=== PATIENT | female | born 1995 | race Hispanic/Latino ===

== ENCOUNTER 2019-01-08 17:02 | Emergency (ER) | payer OTHER ==
[~2019-01-08 17:02] MED LIST: PREN-196 PO; PREN1TAB26 PO
== END 2019-01-08 18:04 | disposition home or self-care (01) ==
LOC: EDH 17:02
DX: S90.861A Insect bite (nonvenomous), right foot, initial encounter (principal); L08.9 Local infection of the skin and subcutaneous tissue, unspecified; W57.XXXA Bitten or stung by nonvenomous insect and other nonvenomous arthropods, initial encounter; Y93.89 Activity, other specified; Y92.89 Other specified places as the place of occurrence of the external cause; Y99.8 Other external cause status
CPT/HCPCS: 73630

== ENCOUNTER 2019-03-11 15:06 | Emergency (ER) | payer OTHER | END 2019-03-11 17:45 | disposition home or self-care (01) | LOC: EDH 15:06 | DX: L01.00 Impetigo, unspecified (principal) ==

== ENCOUNTER 2019-05-03 15:56 | Emergency (ER) | payer MEDICAID ==
[2019-05-03 16:20] LABS: APPEARANCE,URINE Clear (CLEAR); BILIRUBIN,URINE Negative (NEGATIVE); COLOR,URINE Yellow (YELLOW); GLUCOSE, URINE (UA) Negative (NEGATIVE); KETONES,URINE Negative (NEGATIVE); LEUKOCYTE ESTERASE ,URINE Trace (NEGATIVE); NITRATE,URINE Negative (NEGATIVE); OCCULT BLOOD,URINE Negative (NEGATIVE); PH,URINE 5.5 (5.0-8.0); PROTEIN,URINE Negative (NEGATIVE)
[2019-05-03 16:22] LABS: HCG,QUAL RESULT POSITIVE (NEGATIVE)
[2019-05-03 16:48] LABS: BACTERIA,URINE Few /HPF (None Seen); MUCUS,URINE Few LPF (None Seen); RBC,URINE 0-1 /HPF (0-1); SQUAMOUS EPITHELIAL CELL,UR Moderate /HPF (0-2)
[2019-05-03 17:03] LABS: BASOPHILS % (AUTO) 0.1 % (0.0-5.0); EOSINOPHILS % (AUTO) 0.7 % (0.0-8.0); HEMATOCRIT 35.4 % (36-48); LYMPHOCYTES % (AUTO) 23.6 % (21.0-51.0); MEAN CORPUSCULAR HEMOGLOBIN 30.4 pg (27.0-33.0); MEAN CORPUSCULAR HGB CONC 33.9 g/dL (32.0-36.0); MEAN CORPUSCULAR VOLUME 89.7 fL (79-99); MONOCYTES % (AUTO) 6.1 % (3.0-13.0); NEUTROPHILS % (AUTO) 69.5 % (40.0-77.0); NUCLEATED RED BLOOD CELLS 0.1 % (0.0-0.19); PLATELET COUNT (AUTO) 194 K/uL (130-400); RED BLOOD CELL COUNT(AUTO) 3.95 MIL/uL (4.00-5.50); RED CELL DISTRIBUTION WIDTH 13.1 % (11.0-15.5); WHITE BLOOD COUNT (AUTO) 9.1 K/uL (4.8-10.8)
== END 2019-05-03 19:16 | disposition home or self-care (01) ==
LOC: EDH 15:56
DX: O26.891 Other specified pregnancy related conditions, first trimester (principal); R10.9 Unspecified abdominal pain; Z3A.01 Less than 8 weeks gestation of pregnancy
CPT/HCPCS: 36415; 76817; 81001; 81025; 84702; 85025; 86900; 86901

== ENCOUNTER 2019-05-25 17:03 | Emergency (ER) | payer MEDICAID ==
[2019-05-25] MEDS ORDERED: SODIUM CHLORIDE 0.9% 1000ML 1,000 ML IV ONE (17:36)
[2019-05-25] MEDS ORDERED: DiphenhydrAMINE HCL 50 MG/ML VIAL ONE (17:48)
[2019-05-25 18:21] LABS: BASOPHILS % (AUTO) 0.1 % (0.0-5.0); EOSINOPHILS % (AUTO) 0.2 % (0.0-8.0); HEMATOCRIT 37.1 % (36-48); LYMPHOCYTES % (AUTO) 14.5 % (21.0-51.0); MEAN CORPUSCULAR HGB CONC 33.7 g/dL (32.0-36.0); MEAN CORPUSCULAR VOLUME 89.2 fL (79-99); MONOCYTES % (AUTO) 4.5 % (3.0-13.0); NEUTROPHILS % (AUTO) 80.4 % (40.0-77.0); PLATELET COUNT (AUTO) 189 K/uL (130-400); RED BLOOD CELL COUNT(AUTO) 4.16 MIL/uL (4.00-5.50); RED CELL DISTRIBUTION WIDTH 13.2 % (11.0-15.5)
[2019-05-25 18:35] LABS: CREATININE 0.5 mg/dL (0.5-1.5); POTASSIUM 3.3 mmol/L (3.5-5.1)
[2019-05-25] MEDS ORDERED: POTASSIUM CHLORIDE 20 MEQ ERTAB PO ONE (19:01)
[2019-05-25 19:13] LABS: APPEARANCE,URINE Clear (CLEAR); BILIRUBIN,URINE Negative (NEGATIVE); COLOR,URINE Yellow (YELLOW); GLUCOSE, URINE (UA) Negative (NEGATIVE); KETONES,URINE 15 mg/dL (NEGATIVE); LEUKOCYTE ESTERASE ,URINE Negative (NEGATIVE); NITRATE,URINE Negative (NEGATIVE); OCCULT BLOOD,URINE Negative (NEGATIVE); PH,URINE 5.5 (5.0-8.0); PROTEIN,URINE Negative (NEGATIVE); UROBILINOGEN,URINE 0.2 mg/dL (0.2-1.0)
== END 2019-05-25 19:53 | disposition home or self-care (01) ==
LOC: EDH 17:03
DX: O21.1 Hyperemesis gravidarum with metabolic disturbance (principal); R55 Syncope and collapse; Z3A.08 8 weeks gestation of pregnancy
CPT/HCPCS: 36415; 80048; 81003; 85025; 93005; 96361; 96374; 96375; 99285; J1200; J7030

== ENCOUNTER 2020-08-02 21:37 | Emergency (ER) | payer MEDICAID | END 2020-08-02 23:44 | disposition home or self-care (01) | LOC: EDH 21:37 | DX: F41.9 Anxiety disorder, unspecified (principal); R06.4 Hyperventilation | CPT/HCPCS: 99281 ==

== ENCOUNTER 2020-08-26 11:58 | Emergency (ER) | payer MEDICAID ==
[2020-08-26] MEDS ORDERED: ACETAMINOPHEN EXTRA STRENGTH 500 MG TABLET ONE (12:14)
[2020-08-26] MEDS ORDERED: SODIUM CHLORIDE 0.9% 1000ML 1,000 ML IV ONE (12:15)
[2020-08-26 13:04] LABS: BASOPHILS % (AUTO) 0.1 % (0.0-5.0); EOSINOPHILS % (AUTO) 0.1 % (0.0-8.0); HEMATOCRIT 38.3 % (36-48); LYMPHOCYTES % (AUTO) 9.4 % (21.0-51.0); MEAN CORPUSCULAR HGB CONC 33.2 g/dL (32.0-36.0); MEAN CORPUSCULAR VOLUME 87.4 fL (79-99); MONOCYTES % (AUTO) 6.2 % (3.0-13.0); NEUTROPHILS % (AUTO) 83.9 % (40.0-77.0); PLATELET COUNT (AUTO) 159 K/uL (130-400); RED BLOOD CELL COUNT(AUTO) 4.38 MIL/uL (4.00-5.50); RED CELL DISTRIBUTION WIDTH 13.7 % (11.0-15.5); WHITE BLOOD COUNT (AUTO) 9.1 K/uL (4.8-10.8)
[2020-08-26 13:08] LABS: APPEARANCE,URINE CLOUDY (CLEAR); BILIRUBIN,URINE SMALL (NEGATIVE); COLOR,URINE ORANGE (YELLOW); GLUCOSE, URINE (UA) 100 mg/dL (NEGATIVE); KETONES,URINE NEGATIVE (NEGATIVE); LEUKOCYTE ESTERASE ,URINE NEGATIVE (NEGATIVE); NITRATE,URINE POSITIVE (NEGATIVE); OCCULT BLOOD,URINE LARGE (NEGATIVE); PROTEIN,URINE 100 mg/dL (NEGATIVE)
[2020-08-26 13:12] LABS: CREATININE 0.7 mg/dL (0.5-1.5); POTASSIUM 3.3 mmol/L (3.5-5.1)
[2020-08-26 13:14] LABS: RAPID GROUP A STREP NEGATIVE (NEGATIVE)
[2020-08-26 13:15] LABS: HCG,QUAL RESULT NEGATIVE (NEGATIVE)
[2020-08-26 13:17] LABS: ALBUMIN 3.6 g/dL (3.5-5.0); BILIRUBIN,TOTAL 0.4 mg/dL (0.2-1.0); TOTAL PROTEIN, SERUM 7.6 g/dL (6.0-8.3)
[2020-08-26 13:25] LABS: BACTERIA,URINE Few /HPF (None Seen); RBC,URINE TNTC /HPF (0-1); WBC,URINE 0-1 /HPF (0-1)
[2020-08-26] MEDS ORDERED: CEFTRIAXONE SODIUM 1 GM ONE (13:30)
== END 2020-08-26 14:09 | disposition home or self-care (01) ==
LOC: EDH 11:58
DX: N30.90 Cystitis, unspecified without hematuria (principal); E86.0 Dehydration
CPT/HCPCS: 36415; 71045; 80053; 81001; 81025; 85025; 87040 ×2; 87088; 87804 ×2; 87880; 96361; 96365; 99284; J0696; J7030

== ENCOUNTER 2020-12-27 22:18 | Emergency (ER) | payer MEDICAID ==
[~2020-12-27] VITALS: Ht 149.9 cm; Wt 57.2 kg
[2020-12-27 23:01] VITALS: BP 118/72
== END 2020-12-28 00:14 | disposition home or self-care (01) ==
LOC: EDH 22:18
DX: U07.1 COVID-19 (principal); Z79.899 Other long term (current) drug therapy
CPT/HCPCS: 87635; 99283; C9803

== ENCOUNTER 2021-01-09 12:36 | Emergency (ER) | payer MEDICAID ==
[~2021-01-09] VITALS: Ht 149.9 cm; Wt 52.2 kg
[2021-01-09 12:37] VITALS: BP 120/77
[2021-01-09] MEDS ORDERED: MECLIZINE HCL 25 MG TABLET PO ONE (13:00)
[2021-01-09 13:38] LABS: APPEARANCE,URINE Clear (CLEAR); BILIRUBIN,URINE Negative (NEGATIVE); COLOR,URINE Yellow (YELLOW); GLUCOSE, URINE (UA) Negative (NEGATIVE); HCG,QUAL RESULT NEGATIVE (NEGATIVE); KETONES,URINE Negative (NEGATIVE); LEUKOCYTE ESTERASE ,URINE Negative (NEGATIVE); NITRATE,URINE Negative (NEGATIVE); OCCULT BLOOD,URINE Negative (NEGATIVE); PH,URINE 7.5 (5.0-8.0); PROTEIN,URINE Negative (NEGATIVE); UROBILINOGEN,URINE 0.2 mg/dL (0.2-1.0)
[2021-01-09 13:46] VITALS: BP_SYST 114; BP_SYST 123; BP_SYST 126; BP_DIAS 73; BP_DIAS 75; BP_DIAS 79
[2021-01-09 13:53] LABS: BASOPHILS % (AUTO) 0.1 % (0.0-5.0); EOSINOPHILS % (AUTO) 0.2 % (0.0-8.0); HEMATOCRIT 41.2 % (36-48); LYMPHOCYTES % (AUTO) 15.6 % (21.0-51.0); MEAN CORPUSCULAR HEMOGLOBIN 29.2 pg (27.0-33.0); MEAN CORPUSCULAR HGB CONC 33.5 g/dL (32.0-36.0); MEAN CORPUSCULAR VOLUME 87.1 fL (79-99); MONOCYTES % (AUTO) 6.1 % (3.0-13.0); NEUTROPHILS % (AUTO) 77.6 % (40.0-77.0); PLATELET COUNT (AUTO) 259 K/uL (130-400); RED BLOOD CELL COUNT(AUTO) 4.73 MIL/uL (4.00-5.50); RED CELL DISTRIBUTION WIDTH 13.6 % (11.0-15.5); WHITE BLOOD COUNT (AUTO) 8.3 K/uL (4.8-10.8)
[2021-01-09] MEDS ORDERED: 0.9%NACL 1000ML 1,000 ML IV ONE (14:00)
[2021-01-09 14:01] LABS: CREATININE 0.6 mg/dL (0.5-1.5); POTASSIUM 4.1 mmol/L (3.5-5.1)
[2021-01-09] MEDS ORDERED: MECLIZINE HCL 25 MG TABLET ONE (14:03)
[2021-01-09 14:06] LABS: ALBUMIN 4.2 g/dL (3.5-5.0); BILIRUBIN,TOTAL 0.5 mg/dL (0.2-1.0); TOTAL PROTEIN, SERUM 8.5 g/dL (6.0-8.3)
[2021-01-09] MEDS ORDERED: MECL-226 PO (14:36)
== END 2021-01-09 14:52 | disposition home or self-care (01) ==
LOC: EDH 12:36
DX: I95.1 Orthostatic hypotension (principal); B34.9 Viral infection, unspecified
CPT/HCPCS: 36415; 71045; 80053; 81003; 81025; 84484; 85025; 93005

== ENCOUNTER 2021-06-29 21:03 | Emergency (ER) | payer MEDICAID ==
[~2021-06-29] VITALS: Ht 152.4 cm; Wt 59.0 kg
[~2021-06-29 21:03] MED LIST changes: +MECL-226 PO
[2021-06-30] MEDS ORDERED: BENZ-39 PO (05:08)
[2021-06-30 05:23] VITALS: BP 122/72
== END 2021-06-30 05:23 | disposition home or self-care (01) ==
LOC: EDH 21:03
DX: U07.1 COVID-19 (principal); F41.9 Anxiety disorder, unspecified; Z79.899 Other long term (current) drug therapy
CPT/HCPCS: 87635; 99283; C9803

== ENCOUNTER 2021-11-12 22:19 | Emergency (ER) | payer MEDICAID ==
[~2021-11-12] VITALS: Ht 149.9 cm; Wt 61.2 kg
[~2021-11-12 22:19] MED LIST changes: +BENZ-39 PO
[2021-11-12 22:37] LABS: BASOPHILS % (AUTO) 0.3 % (0.0-5.0); EOSINOPHILS % (AUTO) 2.9 % (0.0-8.0); LYMPHOCYTES % (AUTO) 32.2 % (21.0-51.0); MEAN CORPUSCULAR HEMOGLOBIN 29.7 pg (27.0-33.0); MEAN CORPUSCULAR HGB CONC 33.1 g/dL (32.0-36.0); MEAN CORPUSCULAR VOLUME 89.9 fL (79-99); MONOCYTES % (AUTO) 8.1 % (3.0-13.0); NEUTROPHILS % (AUTO) 56.4 % (40.0-77.0); PLATELET COUNT (AUTO) 207 K/uL (130-400); RED BLOOD CELL COUNT(AUTO) 4.34 MIL/uL (4.00-5.50); WHITE BLOOD COUNT (AUTO) 7.5 K/uL (4.8-10.8)
[2021-11-12 22:46] LABS: CREATININE 0.8 mg/dL (0.5-1.5)
[2021-11-12 22:50] LABS: ALBUMIN 3.9 g/dL (3.5-5.0); BILIRUBIN,TOTAL 0.3 mg/dL (0.2-1.0); TOTAL PROTEIN, SERUM 7.8 g/dL (6.0-8.3)
[2021-11-12 22:54] LABS: APPEARANCE,URINE Clear (CLEAR); BILIRUBIN,URINE Negative (NEGATIVE); COLOR,URINE Yellow (YELLOW); GLUCOSE, URINE (UA) Negative (NEGATIVE); KETONES,URINE Negative (NEGATIVE); LEUKOCYTE ESTERASE ,URINE Trace (NEGATIVE); NITRATE,URINE Negative (NEGATIVE); OCCULT BLOOD,URINE Negative (NEGATIVE); PH,URINE 6.5 (5.0-8.0); PROTEIN,URINE Negative (NEGATIVE)
[2021-11-12 22:57] LABS: HCG,QUAL RESULT NEGATIVE (NEGATIVE)
[2021-11-12 23:04] LABS: BACTERIA,URINE Few /HPF (None Seen); RBC,URINE None Seen /HPF (0-1); SQUAMOUS EPITHELIAL CELL,UR Few /HPF (0-2); WBC,URINE None Seen /HPF (0-1)
[2021-11-13] MEDS ORDERED: MORPHINE 4 MG SYG ONE (00:17)
[2021-11-13] MEDS ORDERED: ONDANSETRON 4MG INJ ONE (00:17)
[2021-11-13 00:29] VITALS: BP 100/64
[2021-11-13] MEDS ORDERED: MORPHINE 4 MG SYG IVP ONE (00:30)
[2021-11-13] MEDS ORDERED: ONDANSETRON 4MG INJ IVP ONE (00:30)
== END 2021-11-13 00:46 | disposition home or self-care (01) ==
LOC: EDH 22:19
DX: K43.9 Ventral hernia without obstruction or gangrene (principal)
CPT/HCPCS: 36415; 74176; 80053; 81001; 81025; 83690; 85025; 99284; J2270; J2405

== ENCOUNTER 2021-12-07 20:37 | Emergency (ER) | payer MEDICAID ==
[~2021-12-07] VITALS: Ht 149.9 cm; Wt 61.2 kg
[2021-12-07 20:44] VITALS: BP 112/73
[2021-12-07] MEDS ORDERED: D-ME1POW16 PO (21:34)
== END 2021-12-07 21:42 | disposition home or self-care (01) ==
LOC: EDH 20:37
DX: J06.9 Acute upper respiratory infection, unspecified (principal); Z20.822 Contact with and (suspected) exposure to COVID-19
CPT/HCPCS: 87635; C9803

== ENCOUNTER 2022-02-06 15:52 | Emergency (ER) | payer MEDICAID ==
[~2022-02-06] VITALS: Ht 149.9 cm; Wt 61.2 kg
[~2022-02-06 15:52] MED LIST changes: +D-ME1POW16 PO
[2022-02-06] MEDS ORDERED: IBUPROFEN 600 MG TABLET PO ONE (16:30)
[2022-02-06] MEDS ORDERED: SULF1TAB42 PO (16:46)
[2022-02-06] MEDS ORDERED: PHEN-776 PO (16:46)
[2022-02-06] MEDS ORDERED: IBUP-2070 PO (16:46)
[2022-02-06 16:49] LABS: APPEARANCE,URINE TURBID (CLEAR); BILIRUBIN,URINE NEGATIVE (NEGATIVE); COLOR,URINE YELLOW (YELLOW); GLUCOSE, URINE (UA) NEGATIVE (NEGATIVE); KETONES,URINE 15 mg/dL (NEGATIVE); LEUKOCYTE ESTERASE ,URINE NEGATIVE (NEGATIVE); NITRATE,URINE NEGATIVE (NEGATIVE); OCCULT BLOOD,URINE SMALL (NEGATIVE); PROTEIN,URINE NEGATIVE (NEGATIVE)
[2022-02-06 16:51] LABS: HCG,QUALITATIVE URINE NEGATIVE (NEGATIVE)
[2022-02-06 16:56] LABS: AMORPHOUS SEDIMENT,UR Many /LPF (None Seen); BACTERIA,URINE Rare /HPF (None Seen); MUCUS,URINE Few LPF (None Seen); SQUAMOUS EPITHELIAL CELL,UR Few /HPF (0-2); WBC,URINE 0-1 /HPF (0-1)
[2022-02-06] MEDS ORDERED: CEFTRIAXONE 1G VIAL IM ONE (17:00)
[2022-02-06] MEDS ORDERED: PHENAZOPYRIDINE HCL 200 MG TABLET PO ONE (17:00)
[2022-02-06 18:02] VITALS: BP 118/78
== END 2022-02-06 18:03 | disposition home or self-care (01) ==
LOC: EDH 15:52
DX: N39.0 Urinary tract infection, site not specified (principal); Z79.1 Long term (current) use of non-steroidal anti-inflammatories (NSAID)
CPT/HCPCS: 99283; 81001; 81025; 96372; J0696

== ENCOUNTER 2022-02-12 13:06 | Emergency (ER) | payer MEDICAID ==
[~2022-02-12] VITALS: Ht 149.9 cm; Wt 61.2 kg
[~2022-02-12 13:06] MED LIST changes: +IBUP-2070 PO; +PHEN-776 PO; +SULF1TAB42 PO
[2022-02-12 15:06] LABS: APPEARANCE,URINE CLOUDY (CLEAR); BILIRUBIN,URINE NEGATIVE (NEGATIVE); COLOR,URINE YELLOW (YELLOW); GLUCOSE, URINE (UA) NEGATIVE (NEGATIVE); KETONES,URINE NEGATIVE (NEGATIVE); LEUKOCYTE ESTERASE ,URINE TRACE (NEGATIVE); NITRATE,URINE NEGATIVE (NEGATIVE); OCCULT BLOOD,URINE LARGE (NEGATIVE); PROTEIN,URINE 30 mg/dL (NEGATIVE); UROBILINOGEN,URINE 0.2 mg/dL (0.2-1.0)
[2022-02-12 15:10] LABS: HCG,QUALITATIVE URINE NEGATIVE (NEGATIVE)
[2022-02-12 15:16] LABS: BACTERIA,URINE Rare /HPF (None Seen); RBC,URINE TNTC /HPF (0-1); SQUAMOUS EPITHELIAL CELL,UR Few /HPF (0-2); WBC,URINE 0-1 /HPF (0-1)
[2022-02-12 17:22] VITALS: BP 146/90
== END 2022-02-12 17:34 | disposition home or self-care (01) ==
LOC: EDH 13:06
DX: R10.9 Unspecified abdominal pain (principal); Z20.822 Contact with and (suspected) exposure to COVID-19; Z79.1 Long term (current) use of non-steroidal anti-inflammatories (NSAID)
CPT/HCPCS: 99283; 87635; 87804 ×2; 81001; 81025; C9803

== ENCOUNTER 2022-04-18 17:47 | Emergency (ER) | payer MEDICAID ==
[~2022-04-18] VITALS: Ht 149.9 cm; Wt 59.0 kg
[2022-04-18 18:38] LABS: BASOPHILS % (AUTO) 0.3 % (0.0-5.0); EOSINOPHILS % (AUTO) 1.7 % (0.0-8.0); HEMATOCRIT 36.8 % (36-48); MEAN CORPUSCULAR HEMOGLOBIN 29.6 pg (27.0-33.0); MEAN CORPUSCULAR HGB CONC 33.2 g/dL (32.0-36.0); MEAN CORPUSCULAR VOLUME 89.3 fL (79-99); MONOCYTES % (AUTO) 6.1 % (3.0-13.0); NEUTROPHILS % (AUTO) 65.6 % (40.0-77.0); PLATELET COUNT (AUTO) 205 K/uL (130-400); RED BLOOD CELL COUNT(AUTO) 4.12 MIL/uL (4.00-5.50); RED CELL DISTRIBUTION WIDTH 13.1 % (11.0-15.5); WHITE BLOOD COUNT (AUTO) 6.5 K/uL (4.8-10.8)
[2022-04-18 18:41] LABS: APPEARANCE,URINE CLEAR (CLEAR); BILIRUBIN,URINE NEGATIVE (NEGATIVE); COLOR,URINE YELLOW (YELLOW); GLUCOSE, URINE (UA) NEGATIVE (NEGATIVE); KETONES,URINE 40 mg/dL (NEGATIVE); LEUKOCYTE ESTERASE ,URINE NEGATIVE Leu/uL (NEGATIVE); NITRATE,URINE NEGATIVE (NEGATIVE); OCCULT BLOOD,URINE NEGATIVE (NEGATIVE); PH,URINE 6.5 (5.0-8.0); PROTEIN,URINE 20 mg/dL (NEGATIVE); UROBILINOGEN,URINE 3 mg/dL (0.2-1.0)
[2022-04-18 18:47] LABS: CREATININE 0.8 mg/dL (0.5-1.5); HCG,QUALITATIVE URINE NEGATIVE (NEGATIVE); POTASSIUM 3.4 mmol/L (3.5-5.1)
[2022-04-18 18:49] LABS: AMPHET/METH SCREEN,URINE NEGATIVE (NEGATIVE); BARBITURATE SCREEN, URINE NEGATIVE (NEGATIVE); BENZODIAZEPINES SCREEN,URINE NEGATIVE (NEGATIVE); CANNABINOID SCREEN,URINE POSITIVE (NEGATIVE); COCAINE SCREEN,URINE NEGATIVE (NEGATIVE); OPIATE SCREEN,URINE NEGATIVE (NEGATIVE); PHENCYCLIDINE SCREEN,URINE NEGATIVE (NEGATIVE)
[2022-04-18 18:52] LABS: ALBUMIN 3.9 g/dL (3.5-5.0)
[2022-04-18 18:53] LABS: BACTERIA,URINE RARE /HPF (None Seen); MUCUS,URINE MOD LPF (None Seen); SQUAMOUS EPITHELIAL CELL,UR MOD /HPF (0-2)
[2022-04-18 20:14] VITALS: BP 105/68
== END 2022-04-18 20:52 | disposition home or self-care (01) ==
LOC: EDH 17:47
DX: F41.9 Anxiety disorder, unspecified (principal); Z79.899 Other long term (current) drug therapy
CPT/HCPCS: 36415; 80053; 80305; 81001; 81025; 84484; 85025; 93005

== ENCOUNTER 2022-05-14 11:33 | Emergency (ER) | payer MEDICAID ==
[~2022-05-14] VITALS: Ht 149.9 cm; Wt 61.2 kg
[2022-05-14 11:58] VITALS: BP 104/63
[2022-05-14 12:49] LABS: APPEARANCE,URINE CLEAR (CLEAR); BILIRUBIN,URINE NEGATIVE (NEGATIVE); COLOR,URINE YELLOW (YELLOW); GLUCOSE, URINE (UA) NEGATIVE (NEGATIVE); KETONES,URINE NEGATIVE (NEGATIVE); LEUKOCYTE ESTERASE ,URINE NEGATIVE Leu/uL (NEGATIVE); NITRATE,URINE NEGATIVE (NEGATIVE); OCCULT BLOOD,URINE TRACE-LYSED (NEGATIVE); PROTEIN,URINE NEGATIVE (NEGATIVE); UROBILINOGEN,URINE 0.2 mg/dL (0.2-1.0)
[2022-05-14 12:51] LABS: HCG,QUALITATIVE URINE NEGATIVE (NEGATIVE)
[2022-05-14] MEDS ORDERED: PHEN-847 PO (13:04)
[2022-05-14 13:22] LABS: BACTERIA,URINE Few /HPF (None Seen); MUCUS,URINE Moderate LPF (None Seen); SQUAMOUS EPITHELIAL CELL,UR Many /HPF (0-2)
== END 2022-05-14 13:12 | disposition home or self-care (01) ==
LOC: EDH 11:33
DX: N30.90 Cystitis, unspecified without hematuria (principal); R30.0 Dysuria; Z79.899 Other long term (current) drug therapy; Z98.890 Other specified postprocedural states
CPT/HCPCS: 81001; 81025

== ENCOUNTER 2022-06-12 10:27 | Emergency (ER) | payer MEDICAID ==
[~2022-06-12] VITALS: Ht 121.9 cm; Wt 56.7 kg
[~2022-06-12 10:27] MED LIST changes: +PHEN-847 PO
[2022-06-12 10:35] VITALS: BP 128/49
[2022-06-12 10:49] LABS: APPEARANCE,URINE SL CLOUDY (CLEAR); BILIRUBIN,URINE NEGATIVE (NEGATIVE); COLOR,URINE YELLOW (YELLOW); GLUCOSE, URINE (UA) NEGATIVE (NEGATIVE); KETONES,URINE 5 mg/dL (NEGATIVE); LEUKOCYTE ESTERASE ,URINE MODERATE Leu/uL (NEGATIVE); NITRATE,URINE NEGATIVE (NEGATIVE); OCCULT BLOOD,URINE TRACE-INTACT (NEGATIVE); PH,URINE 5.5 (5.0-8.0); PROTEIN,URINE TRACE mg/dL (NEGATIVE); UROBILINOGEN,URINE 0.2 mg/dL (0.2-1.0)
[2022-06-12 10:51] LABS: HCG,QUALITATIVE URINE NEGATIVE (NEGATIVE)
[2022-06-12] MEDS ORDERED: ACETAMINOPHEN 500 MG TABLET PO ONE (11:00)
[2022-06-12] MEDS ORDERED: ONDANSETRON ODT 4MG TAB SL ONE (11:00)
[2022-06-12 11:06] LABS: BACTERIA,URINE Few /HPF (None Seen)
[2022-06-12 11:07] LABS: SPERM,URINE Rare /HPF (None Seen)
[2022-06-12] MEDS ORDERED: ONDA4TAB10 PO (11:34)
[2022-06-12] MEDS ORDERED: CEPH500B PO (11:34)
== END 2022-06-12 11:40 | disposition home or self-care (01) ==
LOC: EDH 10:27
DX: N39.0 Urinary tract infection, site not specified (principal); Z79.899 Other long term (current) drug therapy
CPT/HCPCS: 81001; 81025; 87088

== ENCOUNTER 2022-09-18 15:36 | Emergency (ER) | payer MEDICAID ==
[~2022-09-18] VITALS: Ht 149.9 cm; Wt 54.4 kg
[~2022-09-18 15:36] MED LIST changes: +CEPH500B PO; +ONDA4TAB10 PO
[2022-09-18 16:08] LABS: APPEARANCE,URINE CLEAR (CLEAR); BILIRUBIN,URINE NEGATIVE (NEGATIVE); COLOR,URINE LIGHT-YELLOW (YELLOW); GLUCOSE, URINE (UA) NEGATIVE (NEGATIVE); KETONES,URINE NEGATIVE (NEGATIVE); LEUKOCYTE ESTERASE ,URINE 75 Leu/uL (NEGATIVE); NITRATE,URINE NEGATIVE (NEGATIVE); OCCULT BLOOD,URINE NEGATIVE (NEGATIVE); PROTEIN,URINE NEGATIVE (NEGATIVE); UROBILINOGEN,URINE 0.2 mg/dL (0.2-1.0)
[2022-09-18 16:09] LABS: HCG,QUALITATIVE URINE POSITIVE (NEGATIVE)
[2022-09-18 16:14] LABS: BACTERIA,URINE RARE /HPF (None Seen); MUCUS,URINE RARE LPF (None Seen); RBC,URINE 0-1 /HPF (0-1)
[2022-09-18 16:33] LABS: BASOPHILS % (AUTO) 0.1 % (0.0-5.0); EOSINOPHILS % (AUTO) 1.5 % (0.0-8.0); LYMPHOCYTES % (AUTO) 28.7 % (21.0-51.0); MEAN CORPUSCULAR HEMOGLOBIN 29.9 pg (27.0-33.0); MEAN CORPUSCULAR HGB CONC 33.4 g/dL (32.0-36.0); MEAN CORPUSCULAR VOLUME 89.4 fL (79-99); MONOCYTES % (AUTO) 8.2 % (3.0-13.0); NEUTROPHILS % (AUTO) 61.1 % (40.0-77.0); PLATELET COUNT (AUTO) 192 K/uL (130-400); RED BLOOD CELL COUNT(AUTO) 4.25 MIL/uL (4.00-5.50); RED CELL DISTRIBUTION WIDTH 13.6 % (11.0-15.5); WHITE BLOOD COUNT (AUTO) 7.4 K/uL (4.8-10.8)
[2022-09-18 16:47] LABS: CREATININE 0.7 mg/dL (0.5-1.5); POTASSIUM 3.6 mmol/L (3.5-5.1)
[2022-09-18 16:54] LABS: ALBUMIN 3.8 g/dL (3.5-5.0); TOTAL PROTEIN, SERUM 7.9 g/dL (6.0-8.3)
[2022-09-18] MEDS ORDERED: CEPH500B PO (18:53)
[2022-09-18 19:05] VITALS: BP 120/84
== END 2022-09-18 19:10 | disposition home or self-care (01) ==
LOC: EDH 15:36
DX: O46.91 Antepartum hemorrhage, unspecified, first trimester (principal); O23.41 Unspecified infection of urinary tract in pregnancy, first trimester; N39.0 Urinary tract infection, site not specified; Z3A.01 Less than 8 weeks gestation of pregnancy; Z79.899 Other long term (current) drug therapy
CPT/HCPCS: 36415; 76801; 80053; 81001; 81025; 84702; 85025; 87088

== ENCOUNTER 2022-10-24 14:17 | Emergency (ER) | payer MEDICAID ==
[~2022-10-24] VITALS: Ht 149.9 cm; Wt 54.4 kg
[2022-10-24 17:11] LABS: BASOPHILS % (AUTO) 0.2 % (0.0-5.0); EOSINOPHILS % (AUTO) 0.3 % (0.0-8.0); HEMATOCRIT 40.6 % (36-48); LYMPHOCYTES % (AUTO) 18.5 % (21.0-51.0); MEAN CORPUSCULAR HEMOGLOBIN 29.6 pg (27.0-33.0); MEAN CORPUSCULAR HGB CONC 33.5 g/dL (32.0-36.0); MEAN CORPUSCULAR VOLUME 88.5 fL (79-99); MONOCYTES % (AUTO) 8.3 % (3.0-13.0); NEUTROPHILS % (AUTO) 72.4 % (40.0-77.0); PLATELET COUNT (AUTO) 170 K/uL (130-400); RED BLOOD CELL COUNT(AUTO) 4.59 MIL/uL (4.00-5.50); RED CELL DISTRIBUTION WIDTH 13.3 % (11.0-15.5); WHITE BLOOD COUNT (AUTO) 5.8 K/uL (4.8-10.8)
[2022-10-24 17:16] LABS: APPEARANCE,URINE CLOUDY (CLEAR); BILIRUBIN,URINE NEGATIVE (NEGATIVE); COLOR,URINE YELLOW (YELLOW); GLUCOSE, URINE (UA) NEGATIVE (NEGATIVE); KETONES,URINE 60 mg/dL (NEGATIVE); LEUKOCYTE ESTERASE ,URINE 500 Leu/uL (NEGATIVE); NITRATE,URINE NEGATIVE (NEGATIVE); PH,URINE 5.5 (5.0-8.0); PROTEIN,URINE 50 mg/dL (NEGATIVE); UROBILINOGEN,URINE 0.2 mg/dL (0.2-1.0)
[2022-10-24 17:19] LABS: HCG,QUALITATIVE URINE POSITIVE (NEGATIVE)
[2022-10-24 17:22] LABS: CREATININE 0.6 mg/dL (0.5-1.5); POTASSIUM 3.5 mmol/L (3.5-5.1)
[2022-10-24 17:26] LABS: ALBUMIN 4.3 g/dL (3.5-5.0); TOTAL PROTEIN, SERUM 8.9 g/dL (6.0-8.3)
[2022-10-24 17:27] LABS: BACTERIA,URINE FEW /HPF (None Seen); MUCUS,URINE MOD LPF (None Seen); SQUAMOUS EPITHELIAL CELL,UR MANY /HPF (0-2); WBC,URINE 26-50 /HPF (0-1); YEAST,URINE BUDDING FEW /HPF (None Seen)
[2022-10-24] MEDS ORDERED: CEPH500C2 PO (18:04)
[2022-10-24 18:20] VITALS: BP 100/62
== END 2022-10-24 18:19 | disposition home or self-care (01) ==
LOC: EDH 14:17
DX: O23.41 Unspecified infection of urinary tract in pregnancy, first trimester (principal); O20.0 Threatened abortion; N39.0 Urinary tract infection, site not specified; Z3A.09 9 weeks gestation of pregnancy; Z79.899 Other long term (current) drug therapy; Z98.890 Other specified postprocedural states
CPT/HCPCS: 36415; 76801; 80053; 81001; 81025; 84702; 84703; 85025; 86900; 86901; 87088

== ENCOUNTER 2024-10-19 18:30 | Emergency (ER) | payer MEDICAID ==
[~2024-10-19] VITALS: Ht 152.4 cm; Wt 60.3 kg
[~2024-10-19 18:30] MED LIST changes: +CEPH500C2 PO; +ONDA-243 PO; -ONDA4TAB10 PO
[2024-10-19 19:48] VITALS: BP 112/72; PULSE 73; RESP 16; TEMP 98.1; O2SAT 98
--- NOTE | 2024-10-19 19:53 | ERN ---
ED Note History of Present Illness Stated Complaint: VOMITING, NAUSEA Chief Complaint: Nausea,Vomiting,Diarrhea Time Seen by MD: 18:59 Time Seen by Midlevel: 19:15 Dictation: Ms. Rooney is a 9-year-old female with no reported chronic healthy issues who presented to the emergency department with her family this evening for evaluation of nausea. She reports two days of a fatigue, general weakness, and persistent nausea. She said she missed her period this month is is concerned she may be . Her four children are all ill with viral illness/flu symptoms. There is no reported fever, chills, shortness of breath, cough, chest pain, palpitations, abdominal pain, vomiting, diarrhea, dysuria, headache, or dizziness. Allergies: Coded Allergies: No Known Drug Allergies (Unverified Allergy, Unknown, 08/07/15) Home Meds Active Scripts Cephalexin (Cephalexin) 500 Mg Capsule, 500 MG PO TID for 10 Days, #30 CAP Prov:REY SHARP 10/24/22 Cephalexin Monohydrate (Keflex) 500 Mg Cap, 500 MG PO QID for 7 Days, #28 CAP Prov:GEM DOVER 09/18/22 Ondansetron (Ondansetron Odt) 4 Mg Tab.rapdis, 4 MG PO BID for 3 Days, #6 TAB Prov:ZULEIKA KAPADIA MD 06/12/22 Cephalexin Monohydrate (Keflex) 500 Mg Cap, 500 MG PO TID for 7 Days, #21 CAP Prov:ZULEIKA KAPADIA MD 06/12/22 Phenazopyridine HCl (Pyridium) 200 Mg Tab, 200 MG PO TIDPC PRN for PAIN for 5 Days, #15 TAB TAKE WITH FOOD TO PREVENT STOMACH UPSET. Prov:GEM DOVER 05/14/22 Phenazopyridine HCl (Pyridium) 200 Mg Tablet, 200 MG PO TID for painful urination, #10 TAB 0 Refills Prov:ARTURO GILLIS MD 02/06/22 Ibuprofen (Ibuprofen) 600 Mg Tablet, 600 MG PO Q6H PRN for PAIN, #30 TAB 0 Refills Prov:ARTURO GILLIS MD 02/06/22 Sulfamethoxazole/Trimethoprim (Bactrim Ds Tablet) 1 Each Tablet, 1 TAB PO BID for 7 Days, #14 TAB 0 Refills Prov:ARTURO GILLIS MD 02/06/22 D-Methorphan/PE/Acetaminophen (Theraflu Ms Severe Cold Pckt) 1 Each Powd.pack, 1 EACH PO QIDP, #20 PACK Prov:SAYDA RAGLAND 12/07/21 Benzonatate (Tessalon Perles) 100 Mg Cap, 100 MG PO TID PRN for cough, #15 CAP 0 Refills Prov:CHRIS JULIO MD 06/30/21 Meclizine HCl (Meclizine HCl) 12.5 Mg Tablet, 25 MG PO QIDP, #20 TAB Prov:SAYDA RAGLAND 01/09/21 Reported Medications Vit/Iron Fumarate/FA ( Vitamins Tablet) 1 Each Tablet, 1 EACH PO DAILYDINNER, TAB 11/27/15 Vit No.124/Iron/FA ( Vitamin Tablet) 1 Each Tablet, 1 EACH PO DAILY, TAB 08/07/15 Past Medical History Past Medical History: No Pertinent History Surgical History: None Surgical History Other: RIGHT THUMB PSYCH History: no pertinent psych hx Family History: Negative Social History: Negative, Lives with family : 3 Para: 2 Aborts: 0 RN Note Reviewed/Agreed w/PFSH: Yes Review of System Dictation REVIEW OF SYSTEMS: CONSTITUTIONAL: Patient denies fevers, chills, sweats and weight changes. EYES: Patient denies any visual symptoms. EARS, NOSE, AND THROAT: No difficulties with hearing. No symptoms of rhinitis or sore throat. CARDIOVASCULAR: Patient denies chest pains, palpitations, orthopnea and paroxysmal nocturnal dyspnea. RESPIRATORY: No dyspnea on exertion, no wheezing or cough. GI: No vomiting, diarrhea, constipation, abdominal pain, hematochezia or melena. Reports nausea x2 days. : No urinary hesitancy or dribbling. No nocturia or urinary frequency. No abn ormal urethral discharge. MUSCULOSKELETAL: No myalgias or arthralgias. NEUROLOGIC: No chronic headaches, no seizures. Patient denies numbness, tingling or weakness. PSYCHIATRIC: Patient denies problems with mood disturbance. No problems with anxiety. ENDOCRINE: No excessive urination or excessive thirst. DERMATOLOGIC: Patient denies any rashes or skin changes. Initial Vital Sign VS Vital Signs Date Time Temp Pulse Resp B/P (MAP) Pulse Ox O2 Delivery O2 Flow Rate FiO2 10/19/24 18:45 98.1 73 18 111/73 98 Room Air 0 10/19/24 19:48 21 Physical Exam Dictation Vital signs: Reviewed. Afebrile Constitutional: No acute distress. Non-toxic appearing. Head/Face: Normocephalic, atraumatic. Eyes: Periorbital areas with no swelling, redness, or edema. Lids and lashes are normal. Conjunctival injection is absent. Sclera anicteric. Pupils equal, round, reactive to light. ENT: Pinnas intact and no signs of trauma or erythema. Ear canals clear and no discharge. TMs no erythema. No nasal discharge or bleeding noted. Oropharynx with no exudate, redness, swelling, masses, exudates, or evidence of obstruction. Uvula midline. Mucous membranes moist. Neck: Trachea midline, no masses palpated, and no cervical lymphadenopathy. No swelling. Supple, full range of motion. Chest/Axilla: No tenderness, no crepitus, no paradoxical movement, no retractions. Cardiovascular: Regular rate, regular rhythm, no murmur, no gallops. Symmetric pulses. No peripheral edema. Respiratory: Respirations even and unlabored. Lung sounds clear; no wheezes, rales or rhonchi. Room air SpO2 99% Gastrointestinal: Inspection is normal. No distention is appreciated. Bowel sounds are normal. No mass or organomegaly . There is no tenderness. No rebound. No rigidity. No voluntary or involuntary guarding. No Cao's sign. Neurological: Normal speech, gross motor function intact, gross sensory function intact. No focal weakness/Paresthesia. : urine cloudy. Negative CVA tenderness bilaterally. Musculoskeletal/Extremities: All extremities have full range of motion, no pain or tenderness on palpation. Symmetric pulses. Integumentary: Intact. Skin is normal color, warm and dry. Cap refill less than 3 seconds. Results (Laboratory/Radiology) Laboratory/Radiology Laboratory Tests Test 10/19/24 20:00 Urine Color YELLOW (YELLOW) Urine Appearance CLOUDY (CLEAR) H Urine pH 6.5 (5.0-8.0) Urine Specific [place] 1.032 (1.001-1.031) Urine Protein 30 mg/dL (NEGATIVE) H Urine Glucose (UA) NEGATIVE mg/dL (NEGATIVE) Urine Ketones NEGATIVE mg/dL (NEGATIVE) Urine Occult Blood NEGATIVE (NEGATIVE) Urine Nitrate NEGATIVE (NEGATIVE) Urine Bilirubin NEGATIVE mg/dL (NEGATIVE) Urine Urobilinogen 0.2 mg/dL (0.2-1.0) Urine Leukocyte Esterase 500 Dick/uL (NEGATIVE) H Urine RBC 2-5 /HPF (0-1) H Urine WBC 11-25 /HPF (0-1) H Urine Squamous Epithelial Cells FEW /HPF (0-2) Urine Bacteria RARE /HPF (None Seen) Urine Hyaline Casts 2-5 /LPF (0-1 /LPF) H Urine HCG, Qualitative NEGATIVE (NEGATIVE) Labs Reviewed?: Yes ED Course ED Course Orders Procedure Category Date Status Time Ondansetron Odt 4mg PHA 10/19/24 Complete Tab (Zofran 4mg Odt) 19:00 Influenza Type A & B, LAB 10/19/24 Logged Rapid 19:00 Covid Rna Naat LAB 10/19/24 Logged 19:00 Rapid (Group A Strep) LAB 10/19/24 Logged 19:00 Urinalysis Profile LAB 10/19/24 Complete 19:51 ,Urine Test LAB 10/19/24 Complete 19:51 Culture Urine RODERICK 10/19/24 In Process 20:09 Current Medications Medications (Trade) Dose Ordered Sig/Eb Route PRN Reason Start Time Stop Time Status Last Admin Dose Admin Ondansetron HCl (zoFRAN 4MG ODT) 4 mg ONCE ONCE SL 10/19/24 19:00 10/19/24 19:12 DC 10/19/24 19:56 Vital Signs Date Time Temp Pulse Resp B/P (MAP) Pulse Ox O2 Delivery O2 Flow Rate FiO2 10/19/24 19:48 98.1 73 16 112/72 98 Room Air* 0 21 10/19/24 18:45 98.1 73 18 111/73 98 Room Air 0 Uneventful ED course. Patient remains afebrile; normotensive with room air SpO2 98%. She is tolerating p.o. fluids following sublingual Zofran. No vomiting. HCG negative. UA cloudy;+ protein, leukocyte esterase, and UWBC 11-25. Culture pending. She also received IM dose Rocephin. All findings were discussed with patient questions were answered. Medical Decision Making MDM MDM: Differential diagnosis: Viral illness, , UTI Rationale: Tests considered and ordered secondary to shared decision making include: Lab Previous outside records reviewed: Old ER visits. Risk of complication and/or morbidity or mortality of patient management: None Medications-Per medication reconciliation Need for hospitalization: Patient does not meet criteria for hospitalization. Need for emergency major/minor surgery: No There are no social concerns with this patient. Prescription drug management: Nitrofurantoin, Zofran, OTC Tylenol or ibuprofen Prescriptions will include symptomatic care Patient's prior external medical records from other ER visits were reviewed by me as indicated. Prior testing and results from previous visits were reviewed. Prior tests were taken into account with medical decision making and resource utilization, independent historian/historians were used to obtain complete medical history. I independently interpreted the test that were performed, results were reviewed by me and considered findings on radiology if ordered. Medical management and examination interpretation discussions were had by me with other qualified healthcare professionals as indicated for the patient's care. DX & DISP Disposition: Discharge Departure Impression: Primary Impression: UTI (urinary tract infection) during Condition: Stable Scripts Ondansetron (Ondansetron Odt) 4 Mg Tab.rapdis 4 MG PO Q6HPRN PRN for nausea, #15 TAB 0 Refills Prov: WILLAM GARY NP 10/19/24 Nitrofurantoin Macrocrystal (Nitrofurantoin) 100 Mg Capsule 1 CAP PO BID for 7 Days, #14 CAP 0 Refills Prov: WILLAM GARY FLATWORK ASSEMBLER 10/19/24 Additional Instructions: Start nitrofurantoin twice daily; finish the entire course. May take [id number] Tylenol or ibuprofen for discomfort or fever. Drink plenty of water to help flush bacteria from your system. Avoid alcohol/caffeine/spicy food until symptoms resolve. Rest. Follow up with your primary care physician next week. Return to the emergency department for any worsening of symptoms to include fever greater than 101 uncontrolled, back/flank pain, and/or persistent vomiting. Referrals: SELF,REFERRAL (PCP) Time of Disposition: 20:36 WILLAM GARY NP October 19, 2024 19:53
[2024-10-19] MEDS: ondanSETRON ODT 4MG TAB SL ONE (19:56)
[2024-10-19 20:09] LABS: ADD UA MICROSCOPIC YES; APPEARANCE,URINE CLOUDY (CLEAR); BILIRUBIN,URINE NEGATIVE (NEGATIVE); COLOR,URINE YELLOW (YELLOW); GLUCOSE, URINE (UA) NEGATIVE (NEGATIVE); KETONES,URINE NEGATIVE (NEGATIVE); LEUKOCYTE ESTERASE ,URINE 500 Leu/uL (NEGATIVE); NITRATE,URINE NEGATIVE (NEGATIVE); OCCULT BLOOD,URINE NEGATIVE (NEGATIVE); PH,URINE 6.5 (5.0-8.0); PROTEIN,URINE 30 mg/dL (NEGATIVE); UROBILINOGEN,URINE 0.2 mg/dL (0.2-1.0)
[2024-10-19 20:13] LABS: BACTERIA,URINE RARE /HPF (None Seen); HCG,QUALITATIVE URINE NEGATIVE (NEGATIVE); MUCUS,URINE FEW LPF (None Seen); SQUAMOUS EPITHELIAL CELL,UR FEW /HPF (0-2)
[2024-10-19] MEDS ORDERED: NITR100C PO (20:35)
[2024-10-19] MEDS ORDERED: ONDA-243 PO (20:35)
[2024-10-19] MEDS: cefTRIAXone 1G VIAL IM ONE (20:40)
== END 2024-10-19 20:48 | disposition home or self-care (01) ==
LOC: EDH 18:30
DX: N39.0 Urinary tract infection, site not specified (principal)
CPT/HCPCS: 99283; 87086; 81001; 81025; 96372; J0696

== ENCOUNTER 2024-11-04 14:53 | Emergency (ER) | payer MEDICAID ==
[~2024-11-04] VITALS: Ht 152.4 cm; Wt 61.2 kg
[~2024-11-04 14:53] MED LIST changes: +NITR100C PO
--- NOTE | 2024-11-04 15:01 | ERN ---
ED Note History of Present Illness Stated Complaint: DIZZY,NAUSEA Chief Complaint: Nausea,Vomiting,Diarrhea Time Seen by MD: 14:55 Dictation: PATIENT IS A 29-YEAR-OLD FEMALE COMING IN TODAY FROM WORK WITH COMPLAINTS OF HAVING NAUSEA VOMITING TIMES ONCE AND DOES NOT FEEL GOOD. NO CHEST PAIN NO BACK PAIN NO FEVER NO CHILLS. NO PRIMARY CARE DOCTOR SHE CAME STRAIGHT TO THE EMERGENCY ROOM FOR FURTHER EVALUATION AND TREATMENT. SHE STATES SHE IS SEXUALLY ACTIVE, HAS NO CONTROL HOWEVER SHE IS NOT TRYING TO GET . Allergies: Coded Allergies: No Known Drug Allergies (Unverified Allergy, Unknown, 08/07/15) Home Meds Active Scripts Ondansetron (Ondansetron Odt) 4 Mg Tab.rapdis, 4 MG PO Q6HPRN PRN for nausea, #15 TAB 0 Refills Prov:WILLAM GARY NP 10/19/24 Nitrofurantoin Macrocrystal (Nitrofurantoin) 100 Mg Capsule, 1 CAP PO BID for 7 Days, #14 CAP 0 Refills Prov:WILLAM GARY NP 10/19/24 Cephalexin (Cephalexin) 500 Mg Capsule, 500 MG PO TID for 10 Days, #30 CAP Prov:REY SHARP 10/24/22 Cephalexin Monohydrate (Keflex) 500 Mg Cap, 500 MG PO QID for 7 Days, #28 CAP Prov:GEM DOVER 09/18/22 Ondansetron (Ondansetron Odt) 4 Mg Tab.rapdis, 4 MG PO BID for 3 Days, #6 TAB Prov:ZULEIKA KAPADIA MD 06/12/22 Cephalexin Monohydrate (Keflex) 500 Mg Cap, 500 MG PO TID for 7 Days, #21 CAP Prov:ZULEIKA KAPADIA MD 06/12/22 Phenazopyridine HCl (Pyridium) 200 Mg Tab, 200 MG PO TIDPC PRN for PAIN for 5 Days, #15 TAB TAKE WITH FOOD TO PREVENT STOMACH UPSET. Prov:GEM DOVER 05/14/22 Phenazopyridine HCl (Pyridium) 200 Mg Tablet, 200 MG PO TID for painful urination, #10 TAB 0 Refills Prov:ARTURO GILLIS MD 02/06/22 Ibuprofen (Ibuprofen) 600 Mg Tablet, 600 MG PO Q6H PRN for PAIN, #30 TAB 0 Refills Prov:ARTURO GILLIS MD 02/06/22 Sulfamethoxazole/Trimethoprim (Bactrim Ds Tablet) 1 Each Tablet, 1 TAB PO BID for 7 Days, #14 TAB 0 Refills Prov:ARTURO GILLIS MD 02/06/22 D-Methorphan/PE/Acetaminophen (Theraflu Ms Severe Cold Pckt) 1 Each Powd.pack, 1 EACH PO QIDP, #20 PACK Prov:SAYDA RAGLAND 12/07/21 Benzonatate (Tessalon Perles) 100 Mg Cap, 100 MG PO TID PRN for cough, #15 CAP 0 Refills Prov:CHRIS JULIO MD 06/30/21 Meclizine HCl (Meclizine HCl) 12.5 Mg Tablet, 25 MG PO QIDP, #20 TAB Prov:SAYDA RAGLAND 01/09/21 Reported Medications Vit/Iron Fumarate/FA ( Vitamins Tablet) 1 Each Tablet, 1 EACH PO DAILYDINNER, TAB 11/27/15 Vit No.124/Iron/FA ( Vitamin Tablet) 1 Each Tablet, 1 EACH PO DAILY, TAB 08/07/15 Past Medical History Past Medical History: No Pertinent History Surgical History: None Surgical History Other: RIGHT THUMB Family History: Negative Social History: Negative, Lives with family : 3 Para: 2 Aborts: 0 RN Note Reviewed/Agreed w/PFSH: Yes Review of System Dictation CONSTITUTIONAL: NEGATIVE EXCEPT FOR HPI HEAD/FACE: NEGATIVE EXCEPT FOR HPI EENT: NEGATIVE EXCEPT FOR HPI RESPIRATORY: NEGATIVE EXCEPT FOR HPI GASTROINTESTINAL/ABDOMINAL: NEGATIVE EXCEPT FOR HPI NAUSEA VOMITING GENITOURINARY: NEGATIVE EXCEPT FOR HPI MUSCULOSKELETAL: NEGATIVE EXCEPT FOR HPI INTEGUMENTARY: NEGATIVE EXCEPT FOR HPI NEUROLOGICAL/PSYCH: NEGATIVE EXCEPT FOR HPI HEMATOLOGIC/LYMPHATIC: NEGATIVE EXCEPT FOR HPI ALL SYSTEMS NEGATIVE, EXCEPT NOTED ABOVE. 13 POINT REVIEW OF SYSTEMS ASSESSED AND ALL NEGATIVE EXCEPT FOR ABOVE. Initial Vital Sign VS Vital Signs Date Time Temp Pulse Resp B/P (MAP) Pulse Ox O2 Delivery O2 Flow Rate FiO2 11/04/24 14:57 97.9 95 16 126/80 98 Room Air 0 11/04/24 15:19 21 Physical Exam Dictation VITAL SIGNS REVIEWED GENERAL APPEARANCE: ALERT, ORIENTED X 3, NO ACUTE DISTRESS, WELL DEVELOPED, NOURISHED. 0/10 PAIN HEAD AND FACE: NON-TRAUMATIC. EYES: PERRL, PINK CONJUNCTIVAS, EYELID NO TRAUMA, ANTERIOR CHAMBER WITH ARCUS SENILIS. EARS: PINNAS INTACT AND NO SIGNS OF TRAUMA OR ERYTHEMA EAR CANALS CLEAR AND NO DISCHARGE TM NO ERYTHEMA NOSE: NO DISCHARGE, NO BLEEDING. OROPHARYNX: MOUTH NORMAL, TONGUE PINK, PHARYNX CLEAR,NO ERYTHEMA, TONSILS NO EXUDATES, NO ABSCESSES NOTED, MUCOUS MEMBRANE MOIST NECK: SUPPLE, NON-TENDER, NO THYROMEGALY, NO MASSES, NO JVD, NO BRUITS BREAST:DEFERRED CHEST:NO TENDERNESS, NO CREPITUS, NO PARADOXICAL MOVEMENT, NO RETRACTIONS LUNGS:CLEAR, WELL-VENTILATED, SYMMETRIC, NO RALES, NO WHEEZING, NO RHONCHI, NO STRIDOR, GOOD BREATH SOUNDS BILATERALLY HEART: REGULAR RATE, REGULAR RHYTHM, NO MURMUR, NO GALLOPS VASCULAR: NO PERIPHERAL EDEMA, ABDOMEN: SOFT, POSITIVE BOWEL SOUNDS, NONDISTENDED, NO GUARDING, NONTENDER, NO REBOUND, NO MASSES NO HEPATOMEGALY, NO SPLENOMEGALY, NO NELSON'S SIGN, NO HERNIAS. RECTAL: DEFERRED GENITAL: DEFERRED NEUROLOGICAL: NORMAL SPEECH, MOTOR FUNCTION INTACT, SENSORY FUNCTION INTACT MUSCULOSKELETAL: NECK NONTENDER, FULL RANGE OF MOTION, BACK NONTENDER, FULL RANGE OF MOTION, EXTREMITIES: NONTENDER, FULL RANGE OF MOTION SKIN: COLOR PINK, DRY, NO TURGOR, NO RASH, NO LACERATIONS, NO ABRASIONS, NO CONTUSIONS. LYMPHATIC: DEFERRED Results (Laboratory/Radiology) Laboratory/Radiology Laboratory Tests Test 11/04/24 15:10 White Blood Count 6.8 K/uL (4.8-10.8) Red Blood Count 4.45 MIL/uL (4.00-5.50) Hemoglobin 11.8 g/dL (12.0-16.0) L Hematocrit 36.5 % (36-48) Mean Corpuscular Volume 82.0 fL (79-99) Mean Corpuscular Hemoglobin 26.5 pg (27.0-33.0) L Mean Corpuscular Hemoglobin Concent 32.3 g/dL (32.0-36.0) Red Cell Distribution Width 15.3 % (11.0-15.5) Platelet Count 255 K/uL (130-400) Mean Platelet Volume 10.9 fL (7.5-10.5) H Immature Granulocyte % (Auto) 0.3 % (0-1) Neutrophils (%) (Auto) 68.2 % (40.0-77.0) Lymphocytes (%) (Auto) 24.7 % (21.0-51.0) Monocytes (%) (Auto) 5.7 % (3.0-13.0) Eosinophils (%) (Auto) 1.0 % (0.0-8.0) Basophils (%) (Auto) 0.1 % (0.0-5.0) Neutrophils # (Auto) 4.6 K/uL (1.8-7.7) Lymphocytes # (Auto) 1.7 K/uL (1.0-4.8) Monocytes # (Auto) 0.4 K/uL (0.1-1.0) Eosinophils # (Auto) 0.07 K/uL (0.00-0.70) Basophils # (Auto) 0.01 K/uL (0.00-0.20) Absolute Immature Granulocyte (auto 0.02 K/uL (0-1) Nucleated Red Blood Cells 0.0 % (0.0-0.19) Urine Color YELLOW (YELLOW) Urine Appearance CLOUDY (CLEAR) H Urine pH 5.5 (5.0-8.0) Urine Specific [place] 1.037 (1.001-1.031) Urine Protein 30 mg/dL (NEGATIVE) H Urine Glucose (UA) NEGATIVE mg/dL (NEGATIVE) Urine Ketones 5 mg/dL (NEGATIVE) H Urine Occult Blood NEGATIVE (NEGATIVE) Urine Nitrate NEGATIVE (NEGATIVE) Urine Bilirubin NEGATIVE mg/dL (NEGATIVE) Urine Urobilinogen 2.0 mg/dL (0.2-1.0) H Urine Leukocyte Esterase 500 Dick/uL (NEGATIVE) H Urine RBC 6-10 /HPF (0-1) H Urine WBC 51-100 /HPF (0-1) H Urine Squamous Epithelial Cells FEW /HPF (0-2) Urine Bacteria RARE /HPF (None Seen) Urine Other Casts 2 /LPF (None Seen) Urine Yeast FEW /HPF (None Seen) Urine HCG, Qualitative POSITIVE (NEGATIVE) H Sodium Level 139 mmol/L (136-145) Potassium Level 3.5 mmol/L (3.5-5.1) Chloride Level 106 mmol/L (101-111) Carbon Dioxide Level 25 mmol/L (21-32) Blood Urea Nitrogen 11 mg/dL (7-18) Creatinine 0.7 mg/dL (0.5-1.0) Glomerular Filtration Rate Calc 121 mL/min (>90) Random Glucose 113 mg/dL (70-105) H Total Calcium 8.8 mg/dL (8.5-10.1) Labs Reviewed?: Yes ED Course ED Course Orders Procedure Category Date Status Time Cbc With Differential LAB 11/04/24 Complete 14:58 ,Urine Test LAB 11/04/24 Complete 14:58 Urinalysis Profile LAB 11/04/24 Complete 14:58 Basic Metabolic Panel LAB 11/04/24 Complete 14:58 Culture Urine RODERICK 11/04/24 Logged 15:49 Vital Signs Date Time Temp Pulse Resp B/P (MAP) Pulse Ox O2 Delivery O2 Flow Rate FiO2 11/04/24 15:19 97.9 95 16 126/80 98 Room Air* 0 21 11/04/24 14:57 97.9 95 16 126/80 98 Room Air 0 1610/PATIENT MADE AWARE THAT SHE HAS A URINARY TRACT INFECTION SHE IS . SHE WILL BE DISCHARGED HOME TO FOLLOW UP WITH HER VIDEO GAME DESIGNER DOCTOR NEXT ONE TWO DAYS WE WILL BE SENT HOME WITH THE [facility]UG[facility]IN WHICH IS A CATEGORY B DRUG SAFE FOR HER AND THE FETUS. Medical Decision Making MDM MEDICAL DISCHARGE MAKING BASED ON BASIC LABS AND URINALYSIS HCG TEST. PATIENT HAS A POSITIVE HCG ALSO HAS ACUTE CYSTITIS DISCHARGED HOME WITH ZOFRAN AND [facility] GIVEN INSTRUCTIONS ON VITAMINS, FOLLOW UP WITH HER VIDEO GAME DESIGNER DOCTOR IN NEXT 1-2 DAYS NO DRINKING, NO ALCOHOL NO TOBACCO AND NO [id number] MED USE EXCEPT TYLENOL UNTIL CLEARED BY HER VIDEO GAME DESIGNER DX & DISP Disposition: Discharge Departure Impression: Primary Impression: Nausea & vomiting Additional Impressions: Acute urinary tract infection, Condition: Stable Scripts Ondansetron (Ondansetron Odt) 4 Mg Tab.rapdis 4 MG PO Q6HPRN PRN for nausea, #16 TAB 0 Refills Prov: GELY JACOBO NP 11/04/24 Amoxicillin/Potassium Clav (Amox Tr-K Clv 875-125 mg Tab) 875 Mg-125 Mg Tablet 1 EACH PO BID for 7 Days, #14 TAB 0 Refills Prov: GELY JACOBO NP 11/04/24 Additional Instructions: FOLLOW-UP WITH PRIMARY CARE PROVIDER IN 1 TO 2 DAYS. TAKE MEDICATIONS DIRECTED HERE IN THE EMERGENCY ROOM. OKAY TO CONTINUE HOME MEDICATIONS UNLESS OTHERWISE DISCUSSED DURING YOUR VISIT IN THE EMERGENCY ROOM TODAY. RETURN TO YOUR NEAREST EMERGENCY ROOM IF SYMPTOMS WORSEN OR IF THERE IS NO IMPROVEMENT. CALL 911 IF YOU NEED IMMEDIATE ASSISTANCE. TAKE TYLENOL OR MOTRIN [id number] NEEDED AND IF NO CONTRAINDICATIONS ARE PRESENT. INCREASE ORAL HYDRATION. A WOUND CULTURE OR URINE CULTURE WAS ORDERED HERE IN THE EMERGENCY ROOM DEPARTMENT PLEASE FOLLOW-UP WITH PRIMARY CARE PROVIDER AND ADVISE THEM TO GET REPEAT PORTS FROM OUR FACILITY. IF YOU HAD ANY KEVYN WRAP/SPLINTS THAT WERE APPLIED HERE, PLEASE DO NOT REMOVE THEM UNTIL YOU SEE YOUR PRIMARY CARE OR SPECIALTY. TAKE AUGMENTIN DIRECTED UNTIL GONE., TAKE ZOFRAN NEEDED FOR NAUSEA VOMITING. BEGIN VITAMINS/[id number] TODAY. NO ALCOHOL, NO TOBACCO, NO [id number] MEDICATIONS EXCEPT TYLENOL UNTIL CLEARED BY YOUR VIDEO GAME DESIGNER DOCTOR. Referrals: SELF,REFERRAL (PCP) Time of Disposition: 16:08 I have reviewed the case, and I agree with, Diagnosis and Plan GELY JACOBO NP Nov 04, 2024 15:01
[2024-11-04 15:15] LABS: BASOPHILS # (AUTO) 0.01 K/uL (0.00-0.20); BASOPHILS % (AUTO) 0.1 % (0.0-5.0); EOSINOPHILS # (AUTO) 0.07 K/uL (0.00-0.70); HEMATOCRIT 36.5 % (36-48); IMMATURE GRANULOCYTE ABSOLUTE 0.02 K/uL (0-1); LYMPHOCYTES # (AUTO) 1.7 K/uL (1.0-4.8); LYMPHOCYTES % (AUTO) 24.7 % (21.0-51.0); MEAN CORPUSCULAR HEMOGLOBIN 26.5 pg (27.0-33.0); MEAN CORPUSCULAR HGB CONC 32.3 g/dL (32.0-36.0); MONOCYTES # (AUTO) 0.4 K/uL (0.1-1.0); MONOCYTES % (AUTO) 5.7 % (3.0-13.0); NEUTROPHILS # (AUTO) 4.6 K/uL (1.8-7.7); NEUTROPHILS % (AUTO) 68.2 % (40.0-77.0); PLATELET COUNT (AUTO) 255 K/uL (130-400); RED BLOOD CELL COUNT(AUTO) 4.45 MIL/uL (4.00-5.50); RED CELL DISTRIBUTION WIDTH 15.3 % (11.0-15.5); WHITE BLOOD COUNT (AUTO) 6.8 K/uL (4.8-10.8)
[2024-11-04 15:19] VITALS: BP 126/80; PULSE 95; RESP 16; TEMP 97.9; O2SAT 98
[2024-11-04 15:26] LABS: CREATININE 0.7 mg/dL (0.5-1.0); POTASSIUM 3.5 mmol/L (3.5-5.1)
[2024-11-04 15:40] LABS: APPEARANCE,URINE CLOUDY (CLEAR); BILIRUBIN,URINE NEGATIVE (NEGATIVE); COLOR,URINE YELLOW (YELLOW); GLUCOSE, URINE (UA) NEGATIVE (NEGATIVE); KETONES,URINE 5 mg/dL (NEGATIVE); LEUKOCYTE ESTERASE ,URINE 500 Leu/uL (NEGATIVE); NITRATE,URINE NEGATIVE (NEGATIVE); OCCULT BLOOD,URINE NEGATIVE (NEGATIVE); PH,URINE 5.5 (5.0-8.0); PROTEIN,URINE 30 mg/dL (NEGATIVE)
[2024-11-04 15:48] LABS: ADD UA MICROSCOPIC YES
[2024-11-04 15:50] LABS: HCG,QUALITATIVE URINE POSITIVE (NEGATIVE)
[2024-11-04 15:56] LABS: BACTERIA,URINE RARE /HPF (None Seen); MUCUS,URINE FEW LPF (None Seen); OTHER CASTS, URINE 2 /LPF (None Seen); SQUAMOUS EPITHELIAL CELL,UR FEW /HPF (0-2); WBC,URINE 51-100 /HPF (0-1); YEAST,URINE BUDDING FEW /HPF (None Seen)
[2024-11-04] MEDS ORDERED: ONDA-243 PO (16:09)
[2024-11-04] MEDS ORDERED: AMOX1TAB16 PO (16:09)
== END 2024-11-04 16:23 | disposition home or self-care (01) ==
LOC: EDH 14:53
DX: O23.41 Unspecified infection of urinary tract in pregnancy, first trimester (principal); N39.0 Urinary tract infection, site not specified; Z3A.10 10 weeks gestation of pregnancy
CPT/HCPCS: 36415; 80048; 81001; 81025; 85025; 87086; 99283

== ENCOUNTER 2024-11-20 15:36 | Emergency (ER) | payer MEDICAID ==
[~2024-11-20] VITALS: Ht 152.4 cm; Wt 59.0 kg
[~2024-11-20 15:36] MED LIST changes: +AMOX1TAB16 PO
[2024-11-20 16:15] LABS: BASOPHILS # (AUTO) 0.01 K/uL (0.00-0.20); BASOPHILS % (AUTO) 0.2 % (0.0-5.0); EOSINOPHILS # (AUTO) 0.12 K/uL (0.00-0.70); HEMATOCRIT 31.9 % (36-48); IMMATURE GRANULOCYTE ABSOLUTE 0.03 K/uL (0-1); LYMPHOCYTES # (AUTO) 1.7 K/uL (1.0-4.8); LYMPHOCYTES % (AUTO) 28.8 % (21.0-51.0); MEAN CORPUSCULAR HEMOGLOBIN 27.3 pg (27.0-33.0); MEAN CORPUSCULAR HGB CONC 32.9 g/dL (32.0-36.0); MEAN CORPUSCULAR VOLUME 82.9 fL (79-99); MONOCYTES # (AUTO) 0.5 K/uL (0.1-1.0); MONOCYTES % (AUTO) 7.5 % (3.0-13.0); NEUTROPHILS # (AUTO) 3.7 K/uL (1.8-7.7); PLATELET COUNT (AUTO) 160 K/uL (130-400); RED BLOOD CELL COUNT(AUTO) 3.85 MIL/uL (4.00-5.50); RED CELL DISTRIBUTION WIDTH 16.3 % (11.0-15.5)
[2024-11-20 16:23] LABS: CREATININE 0.5 mg/dL (0.5-1.0); POTASSIUM 3.5 mmol/L (3.5-5.1)
--- NOTE | 2024-11-20 16:43 | HMCIMG ---
US OB <14 WEEKS HISTORY: Spotting COMPARISON: None TECHNIQUE: Obstetrical ultrasound study was performed. FINDINGS: The uterus measures 9 x 5 x 7 centimeter. Right ovary measures 4 x 3 x 4 centimeter. Left ovary measures 2.1 x 2 centimeter. There is intrauterine saclike structure. In a patient with positive test, differential diagnosis would include early versus ectopic versus missed . Estimated gestational age by sac size is 5 weeks and 1 day. Beta ECG correlation is performed. No fluid is seen in the cul-de-sac. IMPRESSION: 1. There is intrauterine saclike structure. In a patient with positive test, differential diagnosis would include early versus ectopic versus missed . Estimated gestational age by sac size is 5 weeks and 1 day. Beta ECG correlation is performed.
[2024-11-20 17:00] VITALS: BP 101/60; PULSE 84; RESP 16; TEMP 97.3; O2SAT 100
--- NOTE | 2024-11-20 17:01 | ERN ---
General Chief Complaint: Vaginal Bleeding Stated Complaint: SPOTTING IN Time Seen by MD: 15:37 History of Present Illness Initial Comments 29-year-old female, , LMP a couple of months ago unknown time, no ultrasound yet, presents for some pelvic cramping and some spotting any earlier today. She reports very light spotting that is bright red. No clotting. She reports some mild cramping in the front and lower back. No vomiting. No diarrhea. No urinary symptoms. No discharge. No lesions. No GI type symptoms. No other complaints. She has OB gynecologic follow up with Dr. Felipe scheduled for next week. Allergies: Coded Allergies: No Known Drug Allergies (Unverified Allergy, Unknown, 08/07/15) Home Meds Active Scripts Ondansetron (Ondansetron Odt) 4 Mg Tab.rapdis, 4 MG PO Q6HPRN PRN for nausea, #16 TAB 0 Refills Prov:GELY JACOBO HUMAN RESOURCE ADVISOR 11/04/24 Amoxicillin/Potassium Clav (Amox Tr-K Clv 875-125 mg Tab) 875 Mg-125 Mg Tablet, 1 EACH PO BID for 7 Days, #14 TAB 0 Refills Prov:GELY JACOBO NP 11/04/24 Ondansetron (Ondansetron Odt) 4 Mg Tab.rapdis, 4 MG PO Q6HPRN PRN for nausea, #15 TAB 0 Refills Prov:WILLAM GARY NP 10/19/24 Nitrofurantoin Macrocrystal (Nitrofurantoin) 100 Mg Capsule, 1 CAP PO BID for 7 Days, #14 CAP 0 Refills Prov:WILLAM GARY NP 10/19/24 Cephalexin (Cephalexin) 500 Mg Capsule, 500 MG PO TID for 10 Days, #30 CAP Prov:REY SHARP 10/24/22 Cephalexin Monohydrate (Keflex) 500 Mg Cap, 500 MG PO QID for 7 Days, #28 CAP Prov:GEM DOVERP 09/18/22 Ondansetron (Ondansetron Odt) 4 Mg Tab.rapdis, 4 MG PO BID for 3 Days, #6 TAB Prov:ZULEIKA KAPADIA MD 06/12/22 Cephalexin Monohydrate (Keflex) 500 Mg Cap, 500 MG PO TID for 7 Days, #21 CAP Prov:ZULEIKA KAPADIA MD 06/12/22 Phenazopyridine HCl (Pyridium) 200 Mg Tab, 200 MG PO TIDPC PRN for PAIN for 5 Days, #15 TAB TAKE WITH FOOD TO PREVENT STOMACH UPSET. Prov:GEM DOVER V FRAUD EXAMINER 05/14/22 Phenazopyridine HCl (Pyridium) 200 Mg Tablet, 200 MG PO TID for painful urination, #10 TAB 0 Refills Prov:ARTURO GILLIS MD 02/06/22 Ibuprofen (Ibuprofen) 600 Mg Tablet, 600 MG PO Q6H PRN for PAIN, #30 TAB 0 Refills Prov:ARTURO GILLIS MD 02/06/22 Sulfamethoxazole/Trimethoprim (Bactrim Ds Tablet) 1 Each Tablet, 1 TAB PO BID for 7 Days, #14 TAB 0 Refills Prov:ARTURO GILLIS MD 02/06/22 D-Methorphan/PE/Acetaminophen (Theraflu Ms Severe Cold Pckt) 1 Each Powd.pack, 1 EACH PO QIDP, #20 PACK Prov:SAYDA RAGLAND 12/07/21 Benzonatate (Tessalon Perles) 100 Mg Cap, 100 MG PO TID PRN for cough, #15 CAP 0 Refills Prov:CHRIS JULIO MD 06/30/21 Meclizine HCl (Meclizine HCl) 12.5 Mg Tablet, 25 MG PO QIDP, #20 TAB Prov:SAYDA RAGLAND 01/09/21 Reported Medications Vit/Iron Fumarate/FA ( Vitamins Tablet) 1 Each Tablet, 1 EACH PO DAILYDINNER, TAB 11/27/15 Vit No.124/Iron/FA ( Vitamin Tablet) 1 Each Tablet, 1 EACH PO DAILY, TAB 08/07/15 Past Medical History Past Medical History: No Pertinent History Past Surgical History: None Surgical History Other: RIGHT THUMB Family History Family History: Negative Social History Social History: Negative, Lives with family Female( History) : 5 Para: 4 Aborts: 0 ROS Dictation CONSTITUTIONAL: No chills, no fever, no weakness, no diaphoresis, no malaise. HEAD/FACE: No signs of trauma. EENT: No eye pain, no blurred vision, no tearing, no double vision, no ear pain, no ear discharge, no nose pain, no nasal congestion, no throat pain, no th roat swelling, no mouth pain. RESPIRATORY: No cough, no orthopnea, no SOB, no stridor, no wheezing. CARDIOVASCULAR: No chest pain, no edema, no palpitations, no syncope. GASTROINTESTINAL/ABDOMINAL: No abdominal pain, no constipation, no diarrhea, no nausea, no vomiting. GENITOURINARY: No abnormal discharge, no dysuria, no frequent urination, no hematuria. No complaints of pain in the genitals. MUSCULOSKELETAL: No back pain, no gout, no joint pain, no joint swelling, no muscle pain, no muscle stiffness, no neck pain. INTEGUMENTARY: No change in color, no change in hair/nails, no dryness, no lesion, no lumps, no rash. NEUROLOGICAL/PSYCH: No anxiety, not depressed, no emotional problem, no headache, no numbness, no pre-existing deficit, no history of seizures, no tremors, no weakness. HEMATOLOGIC/LYMPHATIC: Not anemic, no history of blood clots, no apparent bleeding, no bruising, glands not swollen. All Systems Negative, Except as Noted. Physical Exam Physical Exam Dictation VITAL SIGNS: Reviewed. GENERAL APPEARANCE: Alert, oriented x3, no acute distress HEAD AND FACE: Non-traumatic. EYES: PERRL, pink conjunctivas, eyelid no trauma, anterior chamber clear. EARS: Pinnas intact and no signs of trauma or erythema. Ear canals clear and no discharge. TMs no erythema. NOSE: No discharge, no bleeding. OROPHARYNX: Mouth normal, teeth no caries, tongue pink. Pharynx clear, no erythema. Tonsils no exudates, no abscesses noted. Mucous membrane moist. NECK: Supple, non-tender, no thyromegaly, no masses, no JVD, no bruits. BREAST: Deferred. CHEST: No tenderness, no crepitus, no paradoxical movement, no retractions. LUNGS: Clear, well-ventilated, symmetric, no rales, no wheezing, no rhonchi, no stridor, good breath sounds bilaterally. HEART: Regular rate, regular rhythm, no murmur, no gallops. VASCULAR: No peripheral edema. ABDOMEN: Soft, positive bowel sounds, nondistended, no guarding, nontender, no rebound, no masses no hepatomegaly, no splenomegaly, no Cao's sign, no hernias. RECTAL: Deferred. GENITAL: Deferred. NEUROLOGICAL: Normal speech, gross motor function intact, gross sensory function intact. MUSCULOSKELETAL: Neck nontender, full range of motion, back nontender, full range of motion. EXTREMITIES: Nontender, full range of motion. SKIN: Color pink, dry, no turgor, no rash, no lacerations, no abrasions, no contusions. LYMPHATICS: Deferred. Results Laboratory and Microbiology Lab and Micro Result Laboratory Tests Test 11/20/24 16:09 White Blood Count 6.0 K/uL (4.8-10.8) Red Blood Count 3.85 MIL/uL (4.00-5.50) L Hemoglobin 10.5 g/dL (12.0-16.0) L Hematocrit 31.9 % (36-48) L Mean Corpuscular Volume 82.9 fL (79-99) Mean Corpuscular Hemoglobin 27.3 pg (27.0-33.0) Mean Corpuscular Hemoglobin Concent 32.9 g/dL (32.0-36.0) Red Cell Distribution Width 16.3 % (11.0-15.5) H Platelet Count 160 K/uL (130-400) Mean Platelet Volume 11.5 fL (7.5-10.5) H Immature Granulocyte % (Auto) 0.5 % (0-1) Neutrophils (%) (Auto) 61.0 % (40.0-77.0) Lymphocytes (%) (Auto) 28.8 % (21.0-51.0) Monocytes (%) (Auto) 7.5 % (3.0-13.0) Eosinophils (%) (Auto) 2.0 % (0.0-8.0) Basophils (%) (Auto) 0.2 % (0.0-5.0) Neutrophils # (Auto) 3.7 K/uL (1.8-7.7) Lymphocytes # (Auto) 1.7 K/uL (1.0-4.8) Monocytes # (Auto) 0.5 K/uL (0.1-1.0) Eosinophils # (Auto) 0.12 K/uL (0.00-0.70) Basophils # (Auto) 0.01 K/uL (0.00-0.20) Absolute Immature Granulocyte (auto 0.03 K/uL (0-1) Nucleated Red Blood Cells 0.0 % (0.0-0.19) Sodium Level 141 mmol/L (136-145) Potassium Level 3.5 mmol/L (3.5-5.1) Chloride Level 104 mmol/L (101-111) Carbon Dioxide Level 27 mmol/L (21-32) Blood Urea Nitrogen 9 mg/dL (7-18) Creatinine 0.5 mg/dL (0.5-1.0) Glomerular Filtration Rate Calc 131 mL/min (>90) Random Glucose 93 mg/dL (70-105) Total Calcium 8.6 mg/dL (8.5-10.1) Human Chorionic Gonadotropin, Quant 1416 mIU/mL (0-5) H MDM CC: Vaginal bleeding in early Historian: Patient Comorbidities: None Limitations by social determinants of health: None Differential diagnosis: Ectopic versus physiologic bleeding in early versus miscarriage versus anemia Vital signs are stable Clinical exam is unremarkable Labs (independently ordered and interpreted by me): Normocytic anemia hemoglobin 10.5. No leukocytosis. Chemistry panel unremarkable. HCG 1416, very early. Ultrasound OB (independently interpreted by me): No free fluid, likely G-SACH. Per radiology read, agrees that there is a Trey intrauterine sac-like structure. Dated at five weeks one day. Patient is nontoxic. I have low suspicion for ectopic . We will recommend 48 hour follow up. ED Course Orders Procedure Category Date Status Time Hcg,Quantitative LAB 11/20/24 Complete 15:43 Cbc With Differential LAB 11/20/24 Complete 15:43 Basic Metabolic Panel LAB 11/20/24 Complete 15:43 Type And Screen BBK 11/20/24 In Process 15:43 Us Ob <14 Weeks US 11/20/24 Resulted 15:43 Vital Signs Date Time Temp Pulse Resp B/P (MAP) Pulse Ox O2 Delivery O2 Flow Rate FiO2 11/20/24 15:43 98.2 80 16 115/72 98 Room Air 0 DX & DISP Disposition: Discharge Departure Impression: Primary Impression: Vaginal bleeding during Condition: Stable Additional Instructions: There is a small sac like structure in your uterus which may be an early . Your hCG ( level) is 1416. As we discussed, this may be an early , and early miscarriage, or less likely an ectopic . I recommend that you return to the emergency department or go to Dr. Felipe office in 48 hours for a recheck. Please immediately return to the emergency department if you have any severe pain, significant bleeding, fainting episodes, dizziness, or any other concerning symptom. Referrals: SELF,REFERRAL (PCP) DEJA ENRIQUEZ DO Nov 20, 2024 17:01
== END 2024-11-20 17:28 | disposition home or self-care (01) ==
LOC: EDH 15:36
DX: O20.9 Hemorrhage in early pregnancy, unspecified (principal); O26.891 Other specified pregnancy related conditions, first trimester; R10.2 Pelvic and perineal pain; Z3A.01 Less than 8 weeks gestation of pregnancy
CPT/HCPCS: 36415; 76801; 80048; 84702; 85025; 86850; 86900; 86901; 99284

== ENCOUNTER 2024-11-24 09:07 | Emergency (ER) | payer MEDICAID ==
[~2024-11-24] VITALS: Ht 152.4 cm; Wt 59.0 kg
[2024-11-24 09:37] LABS: BASOPHILS # (AUTO) 0.02 K/uL (0.00-0.20); BASOPHILS % (AUTO) 0.2 % (0.0-5.0); EOSINOPHILS # (AUTO) 0.11 K/uL (0.00-0.70); EOSINOPHILS % (AUTO) 1.4 % (0.0-8.0); HEMATOCRIT 39.2 % (36-48); IMMATURE GRANULOCYTE ABSOLUTE 0.02 K/uL (0-1); LYMPHOCYTES # (AUTO) 1.5 K/uL (1.0-4.8); LYMPHOCYTES % (AUTO) 18.1 % (21.0-51.0); MEAN CORPUSCULAR HEMOGLOBIN 27.4 pg (27.0-33.0); MEAN CORPUSCULAR HGB CONC 32.7 g/dL (32.0-36.0); MEAN CORPUSCULAR VOLUME 83.9 fL (79-99); MONOCYTES # (AUTO) 0.4 K/uL (0.1-1.0); MONOCYTES % (AUTO) 4.8 % (3.0-13.0); NEUTROPHILS # (AUTO) 6.1 K/uL (1.8-7.7); NEUTROPHILS % (AUTO) 75.3 % (40.0-77.0); PLATELET COUNT (AUTO) 214 K/uL (130-400); RED BLOOD CELL COUNT(AUTO) 4.67 MIL/uL (4.00-5.50); RED CELL DISTRIBUTION WIDTH 16.6 % (11.0-15.5); WHITE BLOOD COUNT (AUTO) 8.1 K/uL (4.8-10.8)
[2024-11-24 09:48] LABS: CREATININE 0.5 mg/dL (0.5-1.0); POTASSIUM 3.6 mmol/L (3.5-5.1)
[2024-11-24 09:49] LABS: BILIRUBIN,URINE NEGATIVE (NEGATIVE); COLOR,URINE YELLOW (YELLOW); GLUCOSE, URINE (UA) NEGATIVE (NEGATIVE); KETONES,URINE NEGATIVE (NEGATIVE); LEUKOCYTE ESTERASE ,URINE 500 Leu/uL (NEGATIVE); NITRATE,URINE NEGATIVE (NEGATIVE); OCCULT BLOOD,URINE LARGE (NEGATIVE); PROTEIN,URINE 30 mg/dL (NEGATIVE)
[2024-11-24 09:50] LABS: HCG,QUALITATIVE URINE POSITIVE (NEGATIVE)
[2024-11-24 09:51] LABS: ADD UA MICROSCOPIC YES; APPEARANCE,URINE HAZY (CLEAR)
[2024-11-24 09:52] LABS: BACTERIA,URINE FEW /HPF (None Seen); MUCUS,URINE FEW LPF (None Seen); SQUAMOUS EPITHELIAL CELL,UR MANY /HPF (0-2)
[2024-11-24 10:14] LABS: ALBUMIN 4.2 g/dL (3.5-5.0); BILIRUBIN,DIRECT 0.2 mg/dL (0.0-0.3); BILIRUBIN,TOTAL 0.8 mg/dL (0.2-1.0); TOTAL PROTEIN, SERUM 8.5 g/dL (6.0-8.3)
--- NOTE | 2024-11-24 10:19 | HMCIMG ---
Exam Type: US OB <14 WEEKS Clinical Information: confirm IUP Comparison: None FINDINGS: Intrauterine gestational sac. Small subchorionic bleed. Gestational sac diameter 0.73 cm consistent with gestational age 5 weeks 4 days. No embryonic pole seen at this time. Uterus and ovaries are otherwise unremarkable. No adnexal masses. No free fluid or collections. Urinary bladder appears normal. IMPRESSION: Single evaluated with gestational sac 5 weeks 4 days. Embryonic pole not seen at this time. Small bleed. Follow-up advised.
--- NOTE | 2024-11-24 10:52 | ERN ---
ED Note History of Present Illness Stated Complaint: VAGINAL BLEEDING Chief Complaint: Vaginal Bleeding Time Seen by MD: 09:19 Dictation: 29-year-old female presenting to emergency department with spotting 1st trimester was seen here a few days ago for similar presentation at that time patient had a hCG of 1400 with no identifiable IUP on ultrasound. Allergies: Coded Allergies: No Known Drug Allergies (Unverified Allergy, Unknown, 08/07/15) Home Meds Active Scripts Ondansetron (Ondansetron Odt) 4 Mg Tab.rapdis, 4 MG PO Q6HPRN PRN for nausea, #16 TAB 0 Refills Prov:GELY JACOBO EDGE MOLDER 11/04/24 Amoxicillin/Potassium Clav (Amox Tr-K Clv 875-125 mg Tab) 875 Mg-125 Mg Tablet, 1 EACH PO BID for 7 Days, #14 TAB 0 Refills Prov:GELY JACOBO EDGE MOLDER 11/04/24 Ondansetron (Ondansetron Odt) 4 Mg Tab.rapdis, 4 MG PO Q6HPRN PRN for nausea, #15 TAB 0 Refills Prov:WILLAM GARY NP 10/19/24 Nitrofurantoin Macrocrystal (Nitrofurantoin) 100 Mg Capsule, 1 CAP PO BID for 7 Days, #14 CAP 0 Refills Prov:WILLAM GARY NP 10/19/24 Cephalexin (Cephalexin) 500 Mg Capsule, 500 MG PO TID for 10 Days, #30 CAP Prov:REY SHARP 10/24/22 Cephalexin Monohydrate (Keflex) 500 Mg Cap, 500 MG PO QID for 7 Days, #28 CAP Prov:GEM DOVER 09/18/22 Ondansetron (Ondansetron Odt) 4 Mg Tab.rapdis, 4 MG PO BID for 3 Days, #6 TAB Prov:ZULEIKA KAPADIA MD 06/12/22 Cephalexin Monohydrate (Keflex) 500 Mg Cap, 500 MG PO TID for 7 Days, #21 CAP Prov:ZULEIKA KAPADIA MD 06/12/22 Phenazopyridine HCl (Pyridium) 200 Mg Tab, 200 MG PO TIDPC PRN for PAIN for 5 Days, #15 TAB TAKE WITH FOOD TO PREVENT STOMACH UPSET. Prov:GEM DOVER V LOBSTER FISHERMAN 05/14/22 Phenazopyridine HCl (Pyridium) 200 Mg Tablet, 200 MG PO TID for painful urination, #10 TAB 0 Refills Prov:ARTURO GILLIS MD 02/06/22 Ibuprofen (Ibuprofen) 600 Mg Tablet, 600 MG PO Q6H PRN for PAIN, #30 TAB 0 Refills Prov:ARTURO GILLIS MD 02/06/22 Sulfamethoxazole/Trimethoprim (Bactrim Ds Tablet) 1 Each Tablet, 1 TAB PO BID for 7 Days, #14 TAB 0 Refills Prov:ARTURO GILLIS MD 02/06/22 D-Methorphan/PE/Acetaminophen (Theraflu Ms Severe Cold Pckt) 1 Each Powd.pack, 1 EACH PO QIDP, #20 PACK Prov:SAYDA RAGLAND 12/07/21 Benzonatate (Tessalon Perles) 100 Mg Cap, 100 MG PO TID PRN for cough, #15 CAP 0 Refills Prov:CHRIS JULIO MD 06/30/21 Meclizine HCl (Meclizine HCl) 12.5 Mg Tablet, 25 MG PO QIDP, #20 TAB Prov:SAYDA RAGLAND 01/09/21 Reported Medications Vit/Iron Fumarate/FA ( Vitamins Tablet) 1 Each Tablet, 1 EACH PO DAILYDINNER, TAB 11/27/15 Vit No.124/Iron/FA ( Vitamin Tablet) 1 Each Tablet, 1 EACH PO DAILY, TAB 08/07/15 Past Medical History Past Medical History: No Pertinent History Surgical History: None Surgical History Other: RIGHT THUMB Family History: Negative Social History: Negative, Lives with family : 6 Para: 5 Aborts: 0 Review of System Dictation Constitutional: Negative for fever,chills, and weight loss Eyes: Negative for injury, pain,redness, and discharge ENT: Negative for injury,pain or swelling Cardiovascular: Negative for chest pain, palpitations, and edema Respiratory: Negative for shortness of breath, cough, and wheezing, Abdomen/GI: Negative for abdominal pain, nausea, vomiting, diarrhea, and constipation Back: Per HPI MS/Extremity: Negative for injury and deformity Skin: Negative for rash, and discoloration Neuro: Negative for headache, weakness, numbness, tingling, and seizure Psych: Negative for suicide ideation, homicidal ideation, and hallucinations Initial Vital Sign VS Vital Signs Date Time Temp Pulse Resp B/P (MAP) Pulse Ox O2 Delivery O2 Flow Rate FiO2 11/24/24 09:27 99.0 80 16 121/71 99 Room Air 0 11/24/24 09:29 21 Physical Exam Dictation General: awake, alert, NAD Head/Face: Normocephalic, atraumatic Eyes: PERRL, EOMI, vision at baseline ENT: oral cavity clear, TMs clear, no signs of infection Neck: Trachea midline, supple, no nuchal rigidity Cardiovascular: RRR, normal S1/S2, No MRGs, no JVD Respiratory: CTAB, no respiratory distress, No rales or wheezes Abdomen: Soft, non-tender, non-distended, normal bowel sounds, no guarding or rebound. Skin: Warm, dry, normal turgor, no rash MS/Extremity: Pulses equal, no cyanosis, neurovascular intact, FROM Neuro: COAx4, GCS 15, strength 5/5, CN 2-12 intact, normal cerebellar exam, normal gait, Psych: Normal behavior, mood, and affect normal Results (Laboratory/Radiology) Laboratory/Radiology Laboratory Tests Test 11/24/24 09:12 11/24/24 09:30 Urine Color YELLOW (YELLOW) Urine Appearance HAZY (CLEAR) Urine pH 6.0 (5.0-8.0) Urine Specific Bernard 1.035 (1.001-1.031) Urine Protein 30 mg/dL (NEGATIVE) H Urine Glucose (UA) NEGATIVE mg/dL (NEGATIVE) Urine Ketones NEGATIVE mg/dL (NEGATIVE) Urine Occult Blood LARGE (NEGATIVE) H Urine Nitrate NEGATIVE (NEGATIVE) Urine Bilirubin NEGATIVE mg/dL (NEGATIVE) Urine Urobilinogen 4.0 mg/dL (0.2-1.0) H Urine Leukocyte Esterase 500 Dick/uL (NEGATIVE) H Urine RBC 11-25 /HPF (0-1) H Urine WBC 11-25 /HPF (0-1) H Urine Squamous Epithelial Cells MANY /HPF (0-2) Urine Bacteria FEW /HPF (None Seen) Urine HCG, Qualitative POSITIVE (NEGATIVE) H White Blood Count 8.1 K/uL (4.8-10.8) Red Blood Count 4.67 MIL/uL (4.00-5.50) Hemoglobin 12.8 g/dL (12.0-16.0) Hematocrit 39.2 % (36-48) Mean Corpuscular Volume 83.9 fL (79-99) Mean Corpuscular Hemoglobin 27.4 pg (27.0-33.0) Mean Corpuscular Hemoglobin Concent 32.7 g/dL (32.0-36.0) Red Cell Distribution Width 16.6 % (11.0-15.5) H Platelet Count 214 K/uL (130-400) Mean Platelet Volume 11.9 fL (7.5-10.5) H Immature Granulocyte % (Auto) 0.2 % (0-1) Neutrophils (%) (Auto) 75.3 % (40.0-77.0) Lymphocytes (%) (Auto) 18.1 % (21.0-51.0) L Monocytes (%) (Auto) 4.8 % (3.0-13.0) Eosinophils (%) (Auto) 1.4 % (0.0-8.0) Basophils (%) (Auto) 0.2 % (0.0-5.0) Neutrophils # (Auto) 6.1 K/uL (1.8-7.7) Lymphocytes # (Auto) 1.5 K/uL (1.0-4.8) Monocytes # (Auto) 0.4 K/uL (0.1-1.0) Eosinophils # (Auto) 0.11 K/uL (0.00-0.70) Basophils # (Auto) 0.02 K/uL (0.00-0.20) Absolute Immature Granulocyte (auto 0.02 K/uL (0-1) Nucleated Red Blood Cells 0.0 % (0.0-0.19) Sodium Level 138 mmol/L (136-145) Potassium Level 3.6 mmol/L (3.5-5.1) Chloride Level 102 mmol/L (101-111) Carbon Dioxide Level 31 mmol/L (21-32) Blood Urea Nitrogen 10 mg/dL (7-18) Creatinine 0.5 mg/dL (0.5-1.0) Glomerular Filtration Rate Calc 131 mL/min (>90) Random Glucose 103 mg/dL (70-105) Total Calcium 9.3 mg/dL (8.5-10.1) Total Bilirubin 0.8 mg/dL (0.2-1.0) Direct Bilirubin 0.2 mg/dL (0.0-0.3) Aspartate Amino Transf (AST/SGOT) 21 U/L (10-37) Alanine Aminotransferase (ALT/SGPT) 36 U/L (12-78) Alkaline Phosphatase 82 U/L (50-136) Total Protein 8.5 g/dL (6.0-8.3) H Albumin 4.2 g/dL (3.5-5.0) Human Chorionic Gonadotropin, Quant 2104 mIU/mL (0-5) H Labs Reviewed?: Yes Ultrasound Comment: Ultrasound shows yolk sac no heart tones, small subchorionic bleed ED Course ED Course Orders Procedure Category Date Status Time Cbc With Differential LAB 11/24/24 Complete 09:19 Basic Metabolic Panel LAB 11/24/24 Complete 09:19 Hepatic Function Panel LAB 11/24/24 Complete 09:19 ,Urine Test LAB 11/24/24 Complete 09:19 Urinalysis Profile LAB 11/24/24 Complete 09:19 Hcg,Quantitative LAB 11/24/24 Complete 09:19 Us Ob <14 Weeks US 11/24/24 Resulted 09:21 Culture Urine RODERICK 11/24/24 In Process 09:51 Vital Signs Date Time Temp Pulse Resp B/P (MAP) Pulse Ox O2 Delivery O2 Flow Rate FiO2 11/24/24 09:29 98.8 82 17 123/68 100 Room Air* 0 21 11/24/24 09:27 99.0 80 16 121/71 99 Room Air 0 Medical Decision Making MDM MDM: Differential diagnosis: Rationale: Tests considered and ordered secondary to shared decision making include: Previous outside records reviewed: Old ER visits. Risk of complication and/or morbidity or mortality of patient management: None Medications-Per medication reconciliation Need for hospitalization: Patient does not meet criteria for hospitalization. Need for emergency major/minor surgery: No There are no social concerns with this patient. Prescription drug management Prescriptions will include symptomatic care Patient's prior external medical records from other ER visits were reviewed by me as indicated. Prior testing and results from previous visits were reviewed. Prior tests were taken into account with medical decision making and resource utilization, independent historian/historians were used to obtain complete medical history. I independently interpreted the test that were performed, results were reviewed by me and considered findings on radiology if ordered. Medical management and examination interpretation discussions were had by me with other qualified healthcare professionals as indicated for the patient's care. 29-year-old female with signs of threatened ab, signs of IUP on ultrasound no signs of ectopic, hCG is trending up Rh positive no RhoGAM indicated we will see OB in the next few days in clinic with Dr. Felipe advised to return into the ER if worse in any way. DX & DISP Disposition: Discharge Departure Impression: Primary Impression: Threatened Condition: Stable Referrals: SELF,REFERRAL (PCP) ROCIO HIGGINS MD Nov 24, 2024 10:52
[2024-11-24 10:56] VITALS: BP 118/63; PULSE 78; RESP 16; TEMP 98.7; O2SAT 100
--- NOTE | 2024-11-24 10:58 | NUR ---
TP STABELE NO DISTRESS VITALS WNL NO C/O PAIN NOW, PT GIVEN INSTRUCTIONS FOR HOME VERBALZIED UNDERSTADING, NO IV AT THIS TIME, PT DRIVEN HOME BY SPOUSE.
== END 2024-11-24 11:00 | disposition home or self-care (01) ==
LOC: EDH 09:07
DX: O20.0 Threatened abortion (principal); Z3A.01 Less than 8 weeks gestation of pregnancy
CPT/HCPCS: 36415; 76801; 80048; 80076; 81001; 81025; 84702; 85025; 87086; 99284

== ENCOUNTER 2025-04-24 15:35 | Emergency (ER) | payer MEDICAID ==
[~2025-04-24] VITALS: Ht 149.9 cm; Wt 59.0 kg
[~2025-04-24 15:35] MED LIST changes: +IBUP-1492 PO; -IBUP-2070 PO
[2025-04-24 15:57] LABS: APPEARANCE,URINE CLOUDY (CLEAR); GLUCOSE, URINE (UA) NEGATIVE (NEGATIVE); LEUKOCYTE ESTERASE ,URINE 500 Leu/uL (NEGATIVE); NITRATE,URINE NEGATIVE (NEGATIVE); OCCULT BLOOD,URINE +- (TRACE) (NEGATIVE)
[2025-04-24 15:58] LABS: ADD UA MICROSCOPIC YES; HCG,QUALITATIVE URINE POSITIVE (NEGATIVE)
[2025-04-24 16:03] LABS: SQUAMOUS EPITHELIAL CELL,UR MANY /HPF (0-2)
[2025-04-24 16:22] LABS: IMMATURE GRANULOCYTE ABSOLUTE 0.02 K/uL (0-1); NUCLEATED RED BLOOD CELLS 0.0 % (0.0-0.19); PLATELET COUNT (AUTO) 179 K/uL (130-400); RED BLOOD CELL COUNT(AUTO) 3.89 MIL/uL (4.00-5.50); RED CELL DISTRIBUTION WIDTH 14.7 % (11.0-15.5); WHITE BLOOD COUNT (AUTO) 7.5 K/uL (4.8-10.8)
[2025-04-24 16:30] LABS: CREATININE 0.6 mg/dL (0.5-1.0); GLOMERULAR FILTR. RATE CALC 125.0 mL/min (>90); GLUCOSE,RANDOM 86.0 mg/dL (70-105); SODIUM SERUM 135.0 mmol/L (136-145); UREA NITROGEN, BLOOD 10.0 mg/dL (7-18)
[2025-04-24 17:27] VITALS: BP 104/60; PULSE 69; RESP 17; TEMP 98.4; O2SAT 100
--- NOTE | 2025-04-24 17:33 | ERN ---
ED Note History of Present Illness Stated Complaint: PELVIC PAIN, LOW BACK PAIN Chief Complaint: Pelvic Pain Time Seen by MD: 15:40 Time Seen by Midlevel: 15:40 Dictation: 30-year-old female coming in with complaints of pelvic pain onset yesterday. Saturnino richter states pain radiates to the lower back, also states she went to the bathroom today and was spotting. Patient states her last menstruation was 03/12/2025. She states she took a at-home test yesterday and was positive. AB1 Allergies: Coded Allergies: No Known Drug Allergies (Unverified Allergy, Unknown, 08/07/15) Home Meds Active Scripts Ondansetron (Ondansetron Odt) 4 Mg Tab.rapdis, 4 MG PO Q6HPRN PRN for nausea, #16 TAB 0 Refills Prov:GELY JACOBO SQL [employer] DEVELOPER 11/04/24 Amoxicillin/Potassium Clav (Amox Tr-K Clv 875-125 mg Tab) 875 Mg-125 Mg Tablet, 1 EACH PO BID for 7 Days, #14 TAB 0 Refills Prov:GELY JACOBO SQL SS[employer] DEVELOPER 11/04/24 Ondansetron (Ondansetron Odt) 4 Mg Tab.rapdis, 4 MG PO Q6HPRN PRN for nausea, #15 TAB 0 Refills Prov:WILLAM GARY SQL [employer] DEVELOPER 10/19/24 Nitrofurantoin Macrocrystal (Nitrofurantoin) 100 Mg Capsule, 1 CAP PO BID for 7 Days, #14 CAP 0 Refills Prov:WILLAM GARY SQL SS[employer] DEVELOPER 10/19/24 Cephalexin (Cephalexin) 500 Mg Capsule, 500 MG PO TID for 10 Days, #30 CAP Prov:REY SHARP 10/24/22 Cephalexin Monohydrate (Keflex) 500 Mg Cap, 500 MG PO QID for 7 Days, #28 CAP Prov:GEM DOVER V SQL [employer] DEVELOPER 09/18/22 Ondansetron (Ondansetron Odt) 4 Mg Tab.rapdis, 4 MG PO BID for 3 Days, #6 TAB Prov:ZULEIKA KAPADIA MD 06/12/22 Cephalexin Monohydrate (Keflex) 500 Mg Cap, 500 MG PO TID for 7 Days, #21 CAP Prov:ZULEIKA KAPADIA MD 06/12/22 Phenazopyridine HCl (Pyridium) 200 Mg Tab, 200 MG PO TIDPC PRN for PAIN for 5 Days, #15 TAB TAKE WITH FOOD TO PREVENT STOMACH UPSET. Prov:GEM DOVER V SQL SS[employer] DEVELOPER 05/14/22 Phenazopyridine HCl (Pyridium) 200 Mg Tablet, 200 MG PO TID for painful urination, #10 TAB 0 Refills Prov:ARTURO GILLIS MD 02/06/22 Ibuprofen (Ibuprofen) 600 Mg Tablet, 600 MG PO Q6H PRN for PAIN, #30 TAB 0 Refills Prov:ARTURO GILLIS MD 02/06/22 Sulfamethoxazole/Trimethoprim (Bactrim Ds Tablet) 1 Each Tablet, 1 TAB PO BID for 7 Days, #14 TAB 0 Refills Prov:ARTURO GILLIS MD 02/06/22 D-Methorphan/PE/Acetaminophen (Theraflu Ms Severe Cold Pckt) 1 Each Powd.pack, 1 EACH PO QIDP, #20 PACK Prov:SAYDA RAGLAND 12/07/21 Benzonatate (Tessalon Perles) 100 Mg Cap, 100 MG PO TID PRN for cough, #15 CAP 0 Refills Prov:CHRIS JULIO MD 06/30/21 Meclizine HCl (Meclizine HCl) 12.5 Mg Tablet, 25 MG PO QIDP, #20 TAB Prov:SAYDA RAGLAND 01/09/21 Reported Medications Vit/Iron Fumarate/FA ( Vitamins Tablet) 1 Each Tablet, 1 EACH PO DAILYDINNER, TAB 11/27/15 Vit No.124/Iron/FA ( Vitamin Tablet) 1 Each Tablet, 1 EACH PO DAILY, TAB 08/07/15 Past Medical History Past Medical History: No Pertinent History Surgical History: None Surgical History Other: RIGHT THUMB Family History: Negative Social History: Negative, Lives with family LMP: Apr 12, 2025 : 6 Para: 5 Aborts: 0 Review of System Dictation Constitutional: Negative for fever,chills, and weight loss Eyes: Negative for injury, pain,redness, and discharge ENT: Negative for injury,pain or swelling Cardiovascular: Negative for chest pain, palpitations, and edema Respiratory: Negative for shortness of breath, cough, and wheezing, Abdomen/GI: Lower abdominal pain, no nausea, no vomiting, no diarrhea, and no constipation Back: Negative for injury and pain : Negative for injury, bleeding and discharge MS/Extremity: Negative for injury and deformity Skin: Negative for rash, and discoloration Neuro: Negative for headache, weakness, numbness, tingling, and seizure Psych: Negative for suicide ideation, homicidal ideation, and hallucinations Review of Systems: was completed Initial Vital Sign VS Vital Signs Date Time Temp Pulse Resp B/P (MAP) Pulse Ox O2 Delivery O2 Flow Rate FiO2 04/24/25 15:36 98.4 78 16 116/72 99 Room Air 0 04/24/25 15:48 21 Physical Exam Dictation General: awake, alert, NAD Head/Face: Normocephalic, atraumatic Eyes: PERRL, EOMI, vision at baseline ENT: oral cavity clear, TMs clear, no signs of infection Neck: Trachea midline, supple, no nuchal rigidity Cardiovascular: RRR, normal S1/S2, No MRGs, no JVD Respiratory: CTAB, no respiratory distress, No rales or wheezes Abdomen: Soft, non-tender, non-distended, normal bowel sounds, no guarding or rebound. Skin: Warm, dry, normal turgor, no rash MS/Extremity: Pulses equal, no cyanosis, neurovascular intact, FROM Neuro: COAx4, GCS 15, strength 5/5, CN 2-12 intact, normal cerebellar exam, normal gait, Psych: Normal behavior, mood, and affect normal Results (Laboratory/Radiology) Laboratory/Radiology Laboratory Tests Test 04/24/25 15:50 04/24/25 16:11 Urine Color YELLOW (YELLOW) Urine Appearance CLOUDY (CLEAR) H Urine pH 5.5 (5.0-8.0) Urine Specific [place] 1.034 (1.001-1.031) Urine Protein 20 mg/dL (NEGATIVE) H Urine Glucose (UA) NEGATIVE mg/dL (NEGATIVE) Urine Ketones NEGATIVE mg/dL (NEGATIVE) Urine Occult Blood +- (TRACE) (NEGATIVE) H Urine Nitrate NEGATIVE (NEGATIVE) Urine Bilirubin NEGATIVE mg/dL (NEGATIVE) Urine Urobilinogen 0.2 mg/dL (0.2-1.0) Urine Leukocyte Esterase 500 Dick/uL (NEGATIVE) H Urine RBC 51-100 /HPF (0-1) H Urine WBC 51-100 /HPF (0-1) H Urine Squamous Epithelial Cells MANY /HPF (0-2) Urine Bacteria RARE /HPF (None Seen) Urine HCG, Qualitative POSITIVE (NEGATIVE) H White Blood Count 7.5 K/uL (4.8-10.8) Red Blood Count 3.89 MIL/uL (4.00-5.50) L Hemoglobin 11.3 g/dL (12.0-16.0) L Hematocrit 33.6 % (36-48) L Mean Corpuscular Volume 86.4 fL (79-99) Mean Corpuscular Hemoglobin 29.0 pg (27.0-33.0) Mean Corpuscular Hemoglobin Concent 33.6 g/dL (32.0-36.0) Red Cell Distribution Width 14.7 % (11.0-15.5) Platelet Count 179 K/uL (130-400) Mean Platelet Volume 11.8 fL (7.5-10.5) H Immature Granulocyte % (Auto) 0.3 % (0-1) Neutrophils (%) (Auto) 61.7 % (40.0-77.0) Lymphocytes (%) (Auto) 29.7 % (21.0-51.0) Monocytes (%) (Auto) 6.6 % (3.0-13.0) Eosinophils (%) (Auto) 1.6 % (0.0-8.0) Basophils (%) (Auto) 0.1 % (0.0-5.0) Neutrophils # (Auto) 4.7 K/uL (1.8-7.7) Lymphocytes # (Auto) 2.2 K/uL (1.0-4.8) Monocytes # (Auto) 0.5 K/uL (0.1-1.0) Eosinophils # (Auto) 0.12 K/uL (0.00-0.70) Basophils # (Auto) 0.01 K/uL (0.00-0.20) Absolute Immature Granulocyte (auto 0.02 K/uL (0-1) Nucleated Red Blood Cells 0.0 % (0.0-0.19) Sodium Level 135 mmol/L (136-145) L Potassium Level 3.8 mmol/L (3.5-5.1) Chloride Level 104 mmol/L (101-111) Carbon Dioxide Level 25 mmol/L (21-32) Blood Urea Nitrogen 10 mg/dL (7-18) Creatinine 0.6 mg/dL (0.5-1.0) Glomerular Filtration Rate Calc 125 mL/min (>90) Random Glucose 86 mg/dL (70-105) Total Calcium 8.4 mg/dL (8.5-10.1) L Human Chorionic Gonadotropin, Quant 2087 mIU/mL (0-5) H Labs Reviewed?: Yes ED Course ED Course Orders Procedure Category Date Status Time Urinalysis Profile LAB 04/24/25 Complete 15:52 ,Urine Test LAB 04/24/25 Complete 15:52 Culture Urine RODERICK 04/24/25 In Process 15:59 Cbc With Differential LAB 04/24/25 Complete 16:03 Basic Metabolic Panel LAB 04/24/25 Complete 16:03 Hcg,Quantitative LAB 04/24/25 Complete 16:03 Us Ob <14 Weeks US 04/24/25 Taken 17:18 Vital Signs Date Time Temp Pulse Resp B/P (MAP) Pulse Ox O2 Delivery O2 Flow Rate FiO2 04/24/25 17:27 98.4 69 17 104/60 100 Room Air* 0 21 04/24/25 15:48 98.4 78 16 116/72 99 Room Air* 0 21 04/24/25 15:36 98.4 78 16 116/72 99 Room Air 0 Medical Decision Making MDM MDM: 30-year-old female coming in with complaints of pelvic pain onset yesterday. Patient states pain radiates to the lower back, also states she went to the bathroom today and was spotting. Patient states her last menstruation was 03/12/2025. She states she took a at-home test yesterday and was positive. AB1. Blood work is unremarkable. HCG is 2087, UA shows evidence of urinary tract infection. Ultrasound ordered antibiotics given in the ER. Son showing no IUP, early , bilateral ovary flow. Cul-de-sac negative. Differential diagnosis: UTI, early , subchorionic bleed Rationale: Tests considered and ordered secondary to shared decision making include: Previous outside records reviewed: Old ER visits. Risk of complication and/or morbidity or mortality of patient management: None Medications-Per medication reconciliation Need for hospitalization: Patient does not meet criteria for hospitalization. Need for emergency major/minor surgery: No There are no social concerns with this patient. Prescription drug management Prescriptions will include symptomatic care Patient's prior external medical records from other ER visits were reviewed by me as indicated. Prior testing and results from previous visits were reviewed. Prior tests were taken into account with medical decision making and resource utilization, independent historian/historians were used to obtain complete medical history. I independently interpreted the test that were performed, results were reviewed by me and considered findings on radiology if ordered. Medical management and examination interpretation discussions were had by me with other qualified healthcare professionals as indicated for the patient's care. DX & DISP Disposition: Discharge Departure Impression: Primary Impression: Vaginal bleeding during Condition: Stable Additional Instructions: Your HCG 2087, according to your HCG you are 5 w . No SAc seen be related to early . You need to follow up with your OBGYN. Return to the hospital if worsening symptoms. Referrals: SELF,REFERRAL (PCP) Time of Disposition: 18:02 I have reviewed the case, and I agree with, Diagnosis and Plan SUSAN BURT CNP Apr 24, 2025 17:33
--- NOTE | 2025-04-24 18:58 | HMCIMG ---
EXAMINATION: OB ULTRASOUND LESS THAN 14 WEEKS. CLINICAL HISTORY: Amenorrhea. Vaginal Bleeding. Beta hcG is 2087 COMPARISON: None. TECHNIQUE: Grayscale and color ultrasound images were obtained utilizing transabdominal transducer. FINDINGS: LMP: 03/14/2025, 5 weeks and 6 days. RAFAEL: 12/19/2025 The uterus is anteverted, normal in caliber and measures 9.7 x 4.9 x 5.3 cm in the craniocaudal, AP, and transverse dimensions respectively. The endometrium measures approximately 1.4 cm. There is no intrauterine gestation sac seen at present. Cervix appears normal. The right ovary is normal in caliber and measures 2.9 x 1.9 x 2.4 cm. There is a corpus luteum that measures 1.5 x 1.6 cm. The left ovary is normal in caliber and measures 2.1 x 2.3 x 2.2 cm. There is no free fluid in the cul-de-sac. IMPRESSION: No intrauterine gestation sac at present. This appearance in conjunction with a quantitative beta-hCG of 2087 may reflect an ectopic that is not visualized versus a normal early . Recommend short interval follow-up ultrasound and serial quantitative beta-hCG. Right ovarian corpus luteum. /[place]
== END 2025-04-24 18:25 | disposition home or self-care (01) ==
LOC: EDH 15:35
DX: O20.9 Hemorrhage in early pregnancy, unspecified (principal); O26.891 Other specified pregnancy related conditions, first trimester; M54.50 Low back pain, unspecified; R10.20 Pelvic and perineal pain unspecified side; Z3A.01 Less than 8 weeks gestation of pregnancy
CPT/HCPCS: 36415; 76801; 80048; 81001; 81025; 84702; 85025; 87086; 99284